=== PATIENT | male | born 1990 | race Caucasian/White ===

== ENCOUNTER 2020-01-01 12:37 | Inpatient (IN) | payer BC, MEDICAID, SELFPAY ==
[2018-10-25 12:47] VITALS: BMI 40.7
[2020-01-01] VITALS (9 sets, daily range): BP systolic 129–144; BP diastolic 90–97; PULSE 106–138; RESP 14–24; TEMP 36.6–38.4; O2SAT 92–99; BMI 38.0; BMI 37.8
--- NOTE | 2020-01-01 | APP_PTH ---
PATIENT: ROCÍO MARROQUIN LOC: PCU U#:[id number] AGE/SX: 29/M ROOM: [facility] RE01/01/[address]: Dr. Melba Still MD : [id number] BED: 1 DIS: 01/06/2020 SPEC #: [id number] RECD: 01/02/20 00:37 STATUS: FLORIAN REQ #: [id number] MAYE: 01/01/20 00:[address]: Melba Still DEPT: SURGICAL PATHOLOGY RECD BY: [place] ENTERED: 01/04/20 10:09 SP TYPE: APPENDIX OTHR DR: Dr. Hosea Kaufman MD Tissues: Appendix, NOS Procedures: Surgery Specimen Level III HEADER OPERATION: Laparoscopic hand-assisted appendectomy PRE-OP DIAGNOSIS: Perforated appendicitis with abscess TISSUE SUBMITTED: Appendix MICROSCOPIC DIAGNOSIS Appendix, appendectomy: Acute ruptured appendicitis and periappendicitis. RANDALL:clay 01/05/20 MICROSCOPIC DESCRIPTION Slides are reviewed. GROSS DESCRIPTION Received is one container labeled with the patient's name and designated appendix. The specimen consists of an appendix measuring 10 cm in length and up to 1.5 cm in diameter. The attached periappendiceal adipose tissue measures up to 2 cm in width. The serosal surface is congested, hemorrhagic and covered focally with currie, purulent exudate. A focal area suspicious for perforation is noted. The lumen is pinpoint. No fecalith is identified. Principal Software Architect sections are submitted in one cassette. / RANDALL:clay 01/04/20 TC:2 CPT: 24184
--- NOTE | 2020-01-01 12:51 | CT_ITS ---
STUDY: CT ABDOMEN AND PELVIS WITHOUT CONTRAST REASON FOR EXAM: Male, 29 years old. right flank pain RADIATION DOSAGE (If Supplied By Facility): CTDIvol = ( 14.78 ) mGy, DLP = ( 835.91 ) mGycm TECHNIQUE: Transaxial images were obtained from the dome of the diaphragm to the symphysis pubis without oral contrast, and without intravenous contrast. Sagittal and coronal images were reconstructed. Individualized dose optimization techniques were used for this CT. COMPARISON: None. FINDINGS: The visualized lung bases are unremarkable. The visualized portions of the heart are within normal limits. Normal liver. Normal gallbladder and extrahepatic biliary system. Normal spleen. Normal pancreas. Normal bilateral adrenal glands. There is a 10 mm stone in the right renal pelvis without hydronephrosis. Normal left kidney. Normal visualized stomach. Normal small intestine. Normal colon. There is a tubular, thick-walled appendix (>7mm), consistent with acute appendicitis. The cecum is displaced superiorly in the right upper quadrant. The appendix is retrocecal near the lower edge of the liver. Normal abdominal aorta. Normal inferior vena cava. Normal retroperitoneum. Normal urinary bladder. Normal abdominal wall. Normal osseous structures. CT/Abdomen/Pelvis without Cont IMPRESSION: There is a tubular, thick-walled appendix (>7mm), consistent with acute appendicitis. The cecum is displaced superiorly in the right upper quadrant. The appendix is retrocecal near the lower edge of the liver. There is a 10 mm stone in the right renal pelvis without hydronephrosis. N.B. : The above information has been verbally conveyed by Anahy Harmon to Nithya Werner MD, on 01/01/2020 13:53:04 (ET). Electronically Signed: Anahy Harmon, at 13:54 EDT Tel , Service support ,
--- NOTE | 2020-01-01 12:51 | ED.DCSUM_ITS ---
History of Present Illness Chief Complaint: Flank Pain Detail of Chief Complaint: Right flank pain Informant: Patient, Family Onset: Days - 4 days Context: Gradual Onset Timing: Waxes and wanes Current Severity: Moderate Maximum Severity: Moderate Narrative: Patient presents with a four-day history of right flank pain. He points to the mid right back and states it wraps around his right side. He denies urinary difficulty. He has had nausea and vomiting. He denies fever or chills. He also complains of decreased hearing out of his right ear that he noted yesterday. - Past Medical History (1) Kidney stones Status: Chronic Past Medical History - Allergies and Home Meds Allergies/Adverse Reactions: Allergies amoxicillin Allergy (Verified 01/01/20 12:39) Rash Primary Care Physician: Hosea aKufman MD [Primary Care Provider] - Prior records reviewed: Yes Lives: With Family Smoking Status: Never smoker Review of Systems General: Denies: Chills, Fever Eyes: Denies: Visual changes - bilaterally ENT: Reports: - - Decreased hearing right ear Cardiovascular: Denies: Chest pain Respiratory: Denies: Dyspnea, Cough Gastrointestinal: Reports: Abdominal pain, Nausea, Vomiting. Denies: Diarrhea Genitourinary: Denies: Dysuria, Hematuria Musculoskeletal: Denies: Extremity Pain Skin: Denies: Rash Neurological: Denies: Headache Hematologic: Denies: Easy bruising, Easy bleeding Allergy: Denies: Uticaria Physical Exam Vital Signs/Narrative: Vital Signs Temp Pulse Resp BP Pulse Ox 01/01/20 12:38 98 F 138 H 20 H 133/96 H 96 Inital Vital Signs reviewed: Yes General: Well nourished, Well developed Head: Normocephalic ENT: Moist mucous membranes, - - Cerumen right ear canal. TM visualized and clear. Neck: Supple Cardiovascular: Regular rhythm, Tachycardia Respiratory: No distress, CTA bilaterally Abdomen: Soft, Nontender, Hypoactive bowel sounds Extremities: Nontender Skin: Normal color Neurological: Alert, Oriented x3 Psychological: Normal affect Diagnostic/Tx/Re-eval Impressions Abdomen/Pelvis CT 01/01/20 12:51 IMPRESSION: There is a tubular, thick-walled appendix (>7mm), consistent with acute appendicitis. The cecum is displaced superiorly in the right upper quadrant. The appendix is retrocecal near the lower edge of the liver. There is a 10 mm stone in the right renal pelvis without hydronephrosis. N.B. : The above information has been verbally conveyed by Anahy Harmon to Nithya Werner MD, on 01/01/2020 13:53:04 (ET). Electronically Signed: Anahy Harmon, at 13:54 EDT Tel , Service support , ADDENDUM: 01/01/20 1401 IMPRESSION: There is a tubular, thick-walled appendix (>7mm), consistent with acute appendicitis. The cecum is displaced superiorly in the right upper quadrant. The appendix is retrocecal near the lower edge of the liver. There is a 10 mm stone in the right renal pelvis without hydronephrosis. N.B. : The above information has been verbally conveyed by Anahy Harmon to Nithya Werner MD, on 01/01/2020 13:53:04 (ET). Electronically Signed: Anahy Harmon, at 13:54 EDT Tel , Service support , 01/01/20 12:51 Abdomen/Pelvis without Cont [CT] Stat 01/01/20 14:38 Abdomen/Pelvis WITH Contrast [CT] Stat Laboratory Results 01/01/20 01/01/20 12:50 12:50 WBC 23.5 H RBC 5.60 Hgb 16.3 Hct 47.8 MCV 85.4 MCH 29.1 MCHC 34.1 RDW Std Deviation 40.4 RDW Coeff of Vicenta 13.1 Plt Count 253 MPV 10.2 Immature Gran % (Auto) 0.600 Neut % (Auto) 89.3 H Lymph % (Auto) 3.6 L [place] % (Auto) 6.4 Eos % (Auto) 0.0 Baso % (Auto) 0.1 Absolute Neuts (auto) 21.0 H Absolute Lymphs (auto) 0.85 Nucleated RBC % 0 Differential Comment SCANNED Sodium 140 Potassium 3.4 L Chloride 105 Carbon Dioxide 27.0 Anion Gap 8 BUN 17 Creatinine 1.22 Estim Creat Clear Calc 84.88 Est GFR (MDRD) Af Amer 89 Est GFR (MDRD) Non-Af 74 BUN/Creatinine Ratio 13.9 Glucose 128 H Calcium 9.4 - Medical Decision Making Patient was initially given morphine, Toradol, Zofran, and IV fluids. Upon completion of lab work and CT he is given a dose of Rocephin and Flagyl as he does have a noted allergy to amoxicillin. Test results are discussed with patient and mother at bedside. I spoke with Dr. Still. Patient's cecum and appendix appear to be in the right upper quadrant just beneath the gallbladder. To better visualize this area prior to going to surgery he will have a repeat CT scan with p.o. and IV contrast. This will be signed out to oncoming physician with follow-up by surgeon. ED Disposition - Plan for ED Patient: Referrals: oHsea Kaufman MD [Primary Care Provider] -
[2020-01-01] MEDS: Ondansetron 4 MG/2 ML Vial IV (13:02)
[2020-01-01] MEDS: Ketorolac 30 MG/ML Syringe IV (13:02)
[2020-01-01] MEDS: Morphine 4 MG/ML Syringe IV (13:02)
[2020-01-01] MEDS: 0.9% Normal Saline 1,000 ML 150 ML IV (13:03)
[2020-01-01 13:11] LABS: Absolute Lymphocyte Count 0.85 X10^3/uL (0.83-4.51); Basophil# 0.02 X10^3/uL; Basophil% 0.1 % (0-1); Hematocrit 47.8 % (40-54); Hemoglobin 16.3 g/dL (13.0-16.5); Lymphocyte # 0.85 X10^3/ul (4.0); Lymphocyte % 3.6 % (19-41); Mean Corp Hgb Conc 34.1 g/dL (32-36); Mean Corpuscular Hgb 29.1 pg (27.0-32.0); Mean Corpuscular Volume 85.4 fL (80-94); Mean Platelet Vol. 10.2 fl (6.2-12.0); Monocyte% 6.4 % (0-10); NRBC Flagged by Analyzer 0 % (0-5); Neutrophil # 21.01 X10^3/uL (2.7-7.7); Neutrophil % 89.3 % (47-70); POSITIVE DIFFERENTIAL YES; Platelet Count 253 K/mm3 (150-450); RBC Distribution Width CV 13.1 % (11.6-14.6); RBC Distribution Width SD 40.4 fl (35.1-43.9); White Blood Count 23.5 K/mm3 (4.4-11.0)
[2020-01-01 13:20] LABS: Anion Gap 8 (5-15); BUN 17 mg/dL (7-18); BUN/Creat Ratio 13.9 RATIO (10-20); Calcium,Total 9.4 mg/dL (8.5-10.1); Chloride 105 mmol/L (98-107); Creatinine, Serum 1.22 mg/dL (0.70-1.30); EST Glomerular Filtration Rate 74 mL/min (>60); Est Glom Filt Rate - Afr Amer 89 mL/min (>60); Estimated Creatinine Clearance 84.88 ml/min; Glucose 128 mg/dL (74-106); Potassium 3.4 mmol/L (3.5-5.1); Sodium Level 140 mmol/L (136-145)
[2020-01-01 13:23] LABS: Differential Indicated SCAN CRITERIA MET
[2020-01-01 13:45] LABS: Differential Comment SCANNED
--- NOTE | 2020-01-01 14:38 | CT_ITS ---
STUDY: CT ABDOMEN AND PELVIS WITH CONTRAST REASON FOR EXAM: Male, 29 years old. Right upper quadrant and flank pain. Question appendicitis. WBC of 23.5 RADIATION DOSAGE (If Supplied By Facility): CTDIvol = ( 15.38 ) mGy, DLP = ( 1454.85 ) mGycm TECHNIQUE: Transaxial images were obtained from the dome of the diaphragm to the symphysis pubis with oral contrast. Oral and amp; IV Gastrografin and amp; 100mL Isovue-300 was administered. Sagittal and coronal images were reconstructed. Individualized dose optimization techniques were used for this CT. COMPARISON: CT of the abdomen and pelvis without contrast, January 01, 2020 (1312 hours). FINDINGS: The visualized lung bases are unremarkable. The visualized portions of the heart are within normal limits. Normal liver. Normal gallbladder and extrahepatic biliary system. Mild splenomegaly without mass. Normal pancreas. Normal bilateral adrenal glands. The right kidney is of normal size and cortical thickness. There is normal contrast enhancement. There is stranding of perinephric fat. There is a 1.1 x 0.8 x 0.7 cm calcification in the renal pelvis without hydronephrosis. Normal visualized right ureter. Normal left kidney. Normal left ureter. Normal visualized stomach. Normal small intestine. There is a wandering cecum which lies along the underside of the liver. There is mild wall thickening. The remainder of the stomach is distended with air via otherwise grossly normal. Appendix is thickened and lies in the hepatorenal fossa. This measures 1.2 cm in diameter. There is diffuse stranding of the appendix. In the right posterior pararenal fascia there is no associated fluid collection measuring 4.2 x 2.3 x 3.5 cm consistent with appendiceal abscess into the fascial plane. This is associated thickening of the right lateral conal fascia. Normal abdominal aorta. Normal inferior vena cava. Normal retroperitoneum. Normal urinary bladder. Prostate. There is no pelvic lymphadenopathy. No free air or free fluid is seen within the peritoneal cavity. Normal abdominal wall. Normal osseous structures. CT/Abdomen/Pelvis WITH Contrast IMPRESSION: 1. No evidence for appendicitis with appendiceal abscess in the adjacent right posterior pararenal fascial plane. This is unchanged from the previous examination of 3 hours earlier. 2. Nonobstructing calculus in the right renal pelvis. 3. Splenomegaly. 4. No other acute abnormality or interval change. N.B. : The above information has been verbally conveyed by Taran Ivan DO to MD Nalini, on 01/01/2020 16:46:20 (ET). Electronically Signed: Taran Ivan DO at 16:47 EDT Tel [phone], Service support ,
[2020-01-01] MEDS: metroNIDAZOLE 500 MG/100 ML BAG 100 MG IV (15:02)
--- NOTE | 2020-01-01 15:24 | PCM.HP.STD ---
History of Present Illness Date of Admission: 01/01/20 The patient is a 29 year old M presented to the ER due to right flank pain/nausea and vomiting. 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 Patient does have a history of kidney stones. Patient reports pain started on Saturday but the nausea and vomiting and started till today also felt warm last night. Patient had a bowel movement this morning. Patient CT abdomen pelvis with no contrast showed inflammation at the area of the cecum acute appendicitis was called the cecum is displaced superiorly just inferior to the liver, 10 mm nonobstructing kidney stone is seen in the right hilum. White blood count was 23. Patient was given Rocephin and Flagyl the ER. Past Medical History Past Medical History (Chronic Problems): Chronic Problems (Last Reviewed 05/26/18 @ 12:09 by Joan Poe) Kidney stones (Chronic) Allergies amoxicillin Allergy (Verified 01/01/20 12:39) Rash Home Medications: Ambulatory Orders Medication Instructions Recorded Fluoxetine HCl 15 mg PO DAILY 05/16/15 Surgical History: - - Kidney stone Lives: With Family Smoking Status: Never smoker - *Family History Maternal History Items: No pertinent history Review of Systems Constitutional: Reports: Anorexia. Denies: Fever HEENT: Denies: Difficulty Swallowing Gastrointestinal: Reports: Abdominal Pain, Nausea, Vomiting VTE Information - Inpt Only VTE Present on Admission: Yes VTE Mechan Device Prophylaxis: SCD's - Physical Exam Vitals/I&O's: Vital Signs Temp Pulse Resp BP Pulse Ox 98 F 138 H 20 H 133/96 H 96 01/01/20 12:38 01/01/20 12:38 01/01/20 12:38 01/01/20 12:38 01/01/20 12:38 Oxygen Delivery Method Room Air Weight: 250 lb Body Mass Index (BMI) 38.0 General: Alert, Oriented x3, Cooperative HEENT: Atraumatic Lungs: Normal air movement Cardiovascular: Tachycardic Abdomen: Soft, Non-Distended, Tender - Right upper flank, no peritoneal signs Extremities: No clubbing, No cyanosis, No edema Neurological: Cranial nerves II-XII grossly intact Psych/Mental Status: Appropriate Laboratory Results 01/01/20 12:50: WBC 23.5 H, RBC 5.60, Hgb 16.3, Hct 47.8, MCV 85.4, MCH 29.1, MCHC 34.1, RDW Std Deviation 40.4, RDW Coeff of Vicenta 13.1, Plt Count 253, MPV 10.2, Immature Gran % (Auto) 0.600, Neut % (Auto) 89.3 H, Lymph % (Auto) 3.6 L, [place] % (Auto) 6.4, Eos % (Auto) 0.0, Baso % (Auto) 0.1, Absolute Neuts (auto) 21.0 H, Absolute Lymphs (auto) 0.85, Nucleated RBC % 0, Differential Comment SCANNED 01/01/20 12:50: Sodium 140, Potassium 3.4 L, Chloride 105, Carbon Dioxide 27.0, Anion Gap 8, BUN 17, Creatinine 1.22, Estim Creat Clear Calc 84.88, Est GFR (MDRD) Af Amer 89, Est GFR (MDRD) Non-Af 74, BUN/Creatinine Ratio 13.9, Glucose 128 H, Calcium 9.4 Current Medications Sodium Chloride () 1,000 mls @ 150 mls/hr IV .[id number] [facility] Last Admin: 01/01/20 13:03 Dose: 150 mls/hr Documented by: Assessment/Plan All Active Problems (Last Reviewed 05/26/18 @ 12:09 by Joan Poe) Impacted cerumen of both ears (Acute) 29-year-old male with right flank abdominal pain --perforated appendicitis with abscess, leukocytosis 1. Patient will get a repeat CT abdomen pelvis with IV and p.o. contrast to give a better look at the area of the cecum since his pain did start on Saturday it is a little atypical for appendicitis. Did discuss with the patient and his mother that the repeat CT abdomen pelvis does show acute appendicitis would plan to to the OR for a laparoscopic appendectomy. Addendum: repeat CT a/p shows appendicitis with abscess in right hepatorenal fossa. Discussed procedure laparoscopic appendectomy, possible open, possible bowel resection along with the risk but not limited to bleeding, infection/abscess, injury to another organ (small bowel, colon, etc.), adhesion, hernia at incision sites, and anesthesia. Patient and his mother had no further questions this time. Melba Still M.D. Pager: [phone] [facility] [address] [place] [address] [address] [place] [address] Office: [phone] Essential Procedure Criteria Procedure Essential: Yes Criteria Note: On 12/01/2019 the [place] Department of Health ([facility]) Public Order signed by [facility] Director Gilda Allen M.D., regarding the Management of Non-Essential Surgeries and Procedures for the purpose of preserving Personal Protective Equipment (PPE) and critical hospital capacity and resources within [place] went into effect as of 12/02/2019 at 5:00PM. According to the [facility] Public Order: This action will remain in full force and effect until the State of Emergency declared by the Governor no longer exists or the Director of the [facility] rescinds or modifies this Order.. This [facility] order stated all non-essential or elective surgeries and procedures that utilize PPE should be delayed unless there is undue risk to the current or future health of a patient. After reviewing the aforementioned [facility] Public Order and the patients clinical case, I have determined that the scheduled procedure meets the criteria to go forward. Risk to Patient if Procedure Delayed: Risk of rapidly worsening to severe symptoms
[2020-01-01] MEDS: Ceftriaxone 1 GM/50 ML BAG IV (16:44)
--- NOTE | 2020-01-01 16:47 | ED.RN ---
DR TY PAGED FOR DR SANDHU
--- NOTE | 2020-01-01 16:48 | ED.DCSUM_ITS ---
- ER Visit Summary Date of Service: 01/01/20 Chief Complaint: [Addendum to initial dictation by Dr. Nithya Bullock] History of Present Illness: The patient is a 29 M [CARE turned over to me awaiting repeat CT scan with contrast of the abdomen and pelvis at the request of surgeon to further evaluate suspicion of appendicitis. Radiologist called with results stating that the patient still had appendicitis and likely is perforated as there is suspicion of an abscess in the perirenal fat on the right.] Physical Examination: [] Test Results: [] Emergency Department Course and Treatment: [] Treatment Plan: [I will discuss resolved findings with surgeon who is going to be made aware of findings. Plan is to take patient to the operating room for surgical intervention] Disposition: [Admit] Impression: [Acute appendicitis-perforated] This note was generated with [employer] dictation software. It may contain incorrect words, spelling, and punctuation that were not noted in review of the chart prior to signing ED Disposition - Plan for ED Patient: Referrals: Hosea Kaufman MD [Primary Care Provider] -
[2020-01-01 17:42] LABS: Mucous, Urine 0 SEEN /hpf (<or=2+)
[2020-01-01 17:46] LABS: Color, Urine Yellow (Yellow); Glucose, Dipstick Normal (Normal); Ketone-Dipstick 5 mg/dl (Negative); Leukocyte Esterase-Dipstick 25 /ul (Negative); Nitrite-Dipstick Positive (Negative); Occult Blood-Urine 250 /ul (Negative); Protein-Dipstick 100 mg/dl (Negative); Urine Bilirubin Dipstick Negative (Negative); Urine Clarity Sl. Cloudy (Clear); Urine Urobilinogen 1 mg/dl (Normal); Urine pH 6.5 (5.0 - 8.0)
[2020-01-01 17:56] LABS: Amorphous Sediment 1+ URATE; Bacteria RARE /hpf (None Seen); Red Blood Cells-Urine 25-50 SEEN /hpf (0-5); Squamous Epithelial Cells - UA 0-5 SEEN /hpf (0-5); White Blood Cells 0-5 SEEN /hpf (0-5)
--- NOTE | 2020-01-01 21:15 | OP.PCM_ITS ---
Report of Operation Date of Procedure: 01/01/20 Pre-Operative Diagnosis: Acute perforated appendicitis with abscess Post-Operative Diagnosis: Same Surgery/Procedure Performed:: Laparoscopic hand-assisted appendectomy tumbling and rolling supervisor: Sol Gill Type of Anesthesia:: General/Supplemental Anesthesiologist: Richar Thibodeaux Special Medications: Rocephin IV and Flagyl IV in the ER. Specimen's removed: Appendix, culture of abscess fluid Estimated Blood Loss (mL): 50 cc Fluids Replaced: 2000 cc Description of Procedure: Indications: 29-year-old male presented to the ER with right flank pain beginning on Saturday-- with nausea and vomiting today. On workup he was found to have acute perforated appendicitis with abscess on CT and a leukocytosis of 23. Patient was started on antibiotics in the ER for acute appendicitis-Rocephin IV and lateral IV. Description of the procedure: The patient was placed on operating table in supine position. General anesthesia was induced. A timeout was completed verifying correct patient, procedure, position and special equipment prior to beginning procedure. Abdomen was prepped and draped in usual sterile fashion. Incision was made in the natural skin line above the umbilicus with a 15 blade scalpel. The fascia was elevated and incised. Entry into the peritoneum was confirmed visually and no bowel was noted in the vicinity of the incision. The [place] trocar was placed under direct vision. Abdomen insufflated with a pressure of 12-15 mmHg. Patient tolerated insertion well. The scope was inserted and the abdomen inspected. No injuries from initial trocar placement were noted. The cecum was in the right upper quadrant just below the liver and the appendix was retrocecal. Additional 5 mm ports were placed in the epigastric and right lateral abdomen under direct visualization.. Abscess cavity was entered and suctioned and purulent fluid was sent for culture. Due to the dense adhesions along with the gas-filled colon/retrocecal appendix unable to see well laparoscopically did then place a hand-assisted port in the supraumbilical incision for better visualization. The table was placed head up with the right side elevated. Using the hand assist port and appendix was able to be dissected free, which was noted to be very inflamed. The mesoappendix was divided using the Enseal. The epigastric port was exchanged for a 12 mm trocar to accommodate a 45 mm linear cutting stapler blue load. Stapler was used to divide and staple the base of the appendix. Appendix was removed through the gel hand-assisted port. Appendix was sent to pathology. The appendiceal stump was then irrigated and hemostasis was assured. Fluid was suctioned no other pathology was identified. Secondary trochars were removed under direct visualization. No bleeding was noted trocar sites. The laparoscope withdrawn and the umbilical trocar removed. The abdomen was allowed to collapse using the smoke evacuator. Local anesthesia of 30 mL of 0.5% Marcaine was used at the incision sites. The supraumbilical midline incision was closed with the 1-0 PDS suture. The epigastric 12 mm trocar site was closed with interrupted suture of 0 Vicryl. The skin was closed with interrupted sutures of 4-0 Monocryl and Steri-Strips. The patient was extubated. The patient tolerated the procedure well and was taken to the postanesthesia care unit in satisfactory condition. - Complications none
[2020-01-01] MEDS: Bupiv/Epi 0.5% Mpf 30 ML Vial (21:30)
[2020-01-02] VITALS (9 sets, daily range): BP systolic 122–141; BP diastolic 77–94; PULSE 117–125; RESP 18–20; TEMP 36.4–37.2; O2SAT 92–95
[2020-01-02] MEDS: Lactated Ringers 1,000 ML 125 ML IV (00:17)
[2020-01-02] MEDS: Ciprofloxacin 400 MG/200 ML BAG 200 MG IV ×3 (00:19→22:47)
[2020-01-02] MEDS: Morphine 2 MG/ML Syringe IV (00:50)
[2020-01-02] MEDS: metroNIDAZOLE 500 MG/100 ML BAG 100 MG IV ×4 (01:41→21:11)
[2020-01-02] MEDS: Morphine 4 MG/ML Syringe IV ×4 (02:52→14:14)
[2020-01-02] MEDS: Ondansetron 4 MG/2 ML Vial IV (06:11)
[2020-01-02 07:03] LABS: Absolute Lymphocyte Count 0.71 X10^3/uL (0.83-4.51); Absolute Neutrophil Count 16.8 X10^3/uL (2.0-7.7); Basophil# 0.02 X10^3/uL; Basophil% 0.1 % (0-1); Hematocrit 41.9 % (40-54); Hemoglobin 13.7 g/dL (13.0-16.5); Lymphocyte # 0.71 X10^3/ul (4.0); Lymphocyte % 3.8 % (19-41); Mean Corp Hgb Conc 32.7 g/dL (32-36); Mean Corpuscular Hgb 28.9 pg (27.0-32.0); Mean Corpuscular Volume 88.4 fL (80-94); Mean Platelet Vol. 10.5 fl (6.2-12.0); Monocyte# 0.91 X10^3/uL; Monocyte% 4.9 % (0-10); NRBC Flagged by Analyzer 0 % (0-5); Neutrophil # 16.81 X10^3/uL (2.7-7.7); Neutrophil % 90.7 % (47-70); Platelet Count 224 K/mm3 (150-450); RBC Distribution Width CV 13.3 % (11.6-14.6); RBC Distribution Width SD 43.5 fl (35.1-43.9); Red Blood Count 4.74 M/mm3 (4.6-6.2); White Blood Count 18.6 K/mm3 (4.4-11.0)
[2020-01-02] MEDS: 0.9% Saline Lock 10 ML Syringe IV ×3 (08:03→14:14)
--- NOTE | 2020-01-02 08:39 | PN.SURG_ITS ---
Subjective: Patient denies flatus, admits to bloating, hiccups/burping, did have some nausea and vomiting x1 this morning, white blood count is down to 18 from 23 on Cipro Flagyl IV - Physical Exam Vitals/I&O's: Vital Signs Temp Pulse Resp BP Pulse Ox 98.1 F 118 H 18 123/79 H 94 01/02/20 06:21 01/02/20 06:21 01/02/20 06:21 01/02/20 06:21 01/02/20 06:21 Oxygen Flow Rate (L/min) 2 Oxygen Delivery Method Room Air Weight: 248 lb 7.375 oz Body Mass Index (BMI) 37.8 Intake and Output for Last 24 Hours 12/31/19 01/01/20 01/02/20 23:59 23:59 23:59 Intake Total 1150 / 1250 1375 / 1375 Output Total 200 / 200 Balance 1150 / 1250 1175 / 1175 General: Alert, Oriented x3, Cooperative, No apparent distress Lungs: Normal air movement Cardiovascular: Regular rate Abdomen: Soft, Distended - Mild, Tender - Near incisions clean dry and intact, no peritoneal signs Extremities: No clubbing, No cyanosis, No edema Neurological: Cranial nerves II-XII grossly intact Psych/Mental Status: Appropriate Laboratory Results 01/01/20 12:50: WBC 23.5 H, RBC 5.60, Hgb 16.3, Hct 47.8, MCV 85.4, MCH 29.1, MCHC 34.1, RDW Std Deviation 40.4, RDW Coeff of Vicenta 13.1, Plt Count 253, MPV 10.2, Immature Gran % (Auto) 0.600, Neut % (Auto) 89.3 H, Lymph % (Auto) 3.6 L, [place] % (Auto) 6.4, Eos % (Auto) 0.0, Baso % (Auto) 0.1, Absolute Neuts (auto) 21.0 H, Absolute Lymphs (auto) 0.85, Nucleated RBC % 0, Differential Comment SCANNED 01/01/20 12:50: Sodium 140, Potassium 3.4 L, Chloride 105, Carbon Dioxide 27.0, Anion Gap 8, BUN 17, Creatinine 1.22, Estim Creat Clear Calc 84.88, Est GFR (MDRD) Af Amer 89, Est GFR (MDRD) Non-Af 74, BUN/Creatinine Ratio 13.9, Glucose 128 H, Calcium 9.4 01/01/20 17:20: Urine Color Yellow, Urine Clarity Sl. Cloudy, Urine pH 6.5, Ur Specific [employer] 1.010, Urine Protein 100 H, Urine Glucose (UA) Normal, Urine Ketones 5 H, Urine Occult Blood 250 H, Urine Nitrite Positive H, Urine Bilirubin Negative, Urine Urobilinogen 1 H, Ur Leukocyte Esterase 25 H, Urine RBC 25-50 SEEN, Urine WBC 0-5 SEEN, Ur Squamous Epith Cells 0-5 SEEN, Amorphous Sediment 1+ URATE, Urine Bacteria RARE, Urine Mucus 0 SEEN 01/02/20 05:56: WBC 18.6 H, RBC 4.74, Hgb 13.7, Hct 41.9, MCV 88.4, MCH 28.9, MCHC 32.7, RDW Std Deviation 43.5, RDW Coeff of Vicenta 13.3, Plt Count 224, MPV 10.5, Immature Gran % (Auto) 0.500, Neut % (Auto) 90.7 H, Lymph % (Auto) 3.8 L, [place] % (Auto) 4.9, Eos % (Auto) 0.0, Baso % (Auto) 0.1, Absolute Neuts (auto) 16.8 H, Absolute Lymphs (auto) 0.71 L, Nucleated RBC % 0 Current Medications Hydrocodone Bitart/Acetaminophen (Lortab [Replacement] 7.5-325/15) 15 ml PO Q4H PRN PRN PRN Reason: Pain Score 1-10/10 Lactated Ringer's () 1,000 mls @ 125 mls/hr IV .Q8H [facility] Last Admin: 01/02/20 08:02 Dose: Not Given Documented by: Ciprofloxacin (Cipro) 400 mg in 200 mls @ 200 mls/hr IV Q12 [facility] Last Infusion: 01/02/20 01:30 Dose: Infused Documented by: Metronidazole (Flagyl) 500 mg in 100 mls @ 100 mls/hr IV Q8 [facility] Last Infusion: 01/02/20 07:54 Dose: Infused Documented by: Morphine Sulfate () 2 - 4 mg IV Q2H PRN PRN PRN Reason: Pain Score 1-10/10 Last Admin: 01/02/20 00:50 Dose: 2 mg Documented by: Morphine Sulfate () 2 - 4 mg IV Q2H PRN PRN PRN Reason: Pain Score 1-10/10 Last Admin: 01/02/20 06:12 Dose: 4 mg Documented by: Ondansetron HCl (Zofran) 4 mg IV Q8H PRN PRN PRN Reason: NAUSEA Last Admin: 01/02/20 06:11 Dose: 4 mg Documented by: Medical Necessity - Tobacco Use Smoking Status: Never smoker Assessment/Plan All Active Problems (Last Reviewed 05/26/18 @ 12:09 by Joan Poe) Impacted cerumen of both ears (Acute) 29-year-old male with fragile X syndrome, perforated appendicitis with abscess status post laparoscopic appendectomy postop day 1 1. Patient is having some nausea and did vomit x1 denies any flatus will change to sips and chips until bowel function improves due to perforated appendicitis would be at high risk for postop ileus. 2. Encourage ambulation incentive spirometer and up into the chair. 3. We will continue IV Cipro Flagyl blood count is down to 18 from 23. Melba Still M.D. Pager: [phone] [facility] [address] [place] [address], [address] [place] [address] Office: [phone]
--- NOTE | 2020-01-02 10:25 | CASEMGMT ---
RN OSCAR Face to Face with patient for initial transition planning/care coordination assessment. RN CM introduced self and role at [facility]. Patient sitting in chair, alert and oriented, father at bedside. Patient willing to participate in assessment and is able to answer all questions appropriately. Care providers, pharmacy, and demographics verified. Patient wishes to discharge home, denies need for home health at this time. Patient states he has no further needs or concerns at this time. CM to follow for discharge planning needs that may arise. PCP: Hosea Kaufman Specialists: [facility] Pharmacy: [facility] Insurance: [facility] Community plan Prescription Benefit: yes Living Will/HPOA: none LNOK: parents Living Arrangements: Patient lives with parents in 2 story home, patient is independent and able to navigate stairs. Transportation: Father DME/HHC: Patient denies DME and previous HHC Disposition Plan: Patient to discharge home with family support and follow-up plans in place. Maureen NOVA, RN, CM
--- NOTE | 2020-01-02 12:38 | NURSING ---
very faint few bowel sounds.
[2020-01-02] MEDS: 0.9% Normal Saline 1,000 ML 125 ML IV (14:03)
[2020-01-03] MEDS: 0.9% Saline Lock 10 ML Syringe IV ×5 (00:05→22:57)
[2020-01-03] MEDS: Morphine 2 MG/ML Syringe IV ×3 (00:06→22:57)
[2020-01-03] MEDS: 0.9% Normal Saline 1,000 ML 125 ML IV ×2 (00:09→09:17)
[2020-01-03 03:15] VITALS: BP 131/79; PULSE 115; RESP 18; TEMP 37.1; O2SAT 93
[2020-01-03] MEDS: metroNIDAZOLE 500 MG/100 ML BAG 100 MG IV ×3 (05:56→21:12)
[2020-01-03 07:06] LABS: Absolute Lymphocyte Count 1.02 X10^3/uL (0.83-4.51); Basophil# 0.02 X10^3/uL; Basophil% 0.1 % (0-1); Differential Indicated SCAN CRITERIA MET; Hematocrit 38.2 % (40-54); Hemoglobin 12.2 g/dL (13.0-16.5); Lymphocyte # 1.02 X10^3/ul (4.0); Lymphocyte % 6.4 % (19-41); Mean Corp Hgb Conc 31.9 g/dL (32-36); Mean Corpuscular Hgb 28.8 pg (27.0-32.0); Mean Corpuscular Volume 90.1 fL (80-94); Mean Platelet Vol. 10.5 fl (6.2-12.0); Monocyte# 0.77 X10^3/uL; Monocyte% 4.8 % (0-10); NRBC Flagged by Analyzer 0 % (0-5); Neutrophil # 14.04 X10^3/uL (2.7-7.7); Neutrophil % 88.1 % (47-70); POSITIVE MORPHOLOGY YES; Platelet Count 221 K/mm3 (150-450); RBC Distribution Width CV 13.5 % (11.6-14.6); RBC Distribution Width SD 44.8 fl (35.1-43.9); Red Blood Count 4.24 M/mm3 (4.6-6.2)
[2020-01-03 07:20] LABS: Differential Comment SCANNED
[2020-01-03 07:35] LABS: Anion Gap 6 (5-15); BUN 15 mg/dL (7-18); BUN/Creat Ratio 15.7 RATIO (10-20); Calcium,Total 8.1 mg/dL (8.5-10.1); Chloride 107 mmol/L (98-107); Creatinine, Serum 0.96 mg/dL (0.70-1.30); EST Glomerular Filtration Rate 97 mL/min (>60); Est Glom Filt Rate - Afr Amer 118 mL/min (>60); Estimated Creatinine Clearance 107.86 ml/min; Glucose 99 mg/dL (74-106); Potassium 3.6 mmol/L (3.5-5.1); Sodium Level 140 mmol/L (136-145)
[2020-01-03 07:44] VITALS: PULSE 112
[2020-01-03] MEDS: Ondansetron 4 MG/2 ML Vial IV (07:58)
[2020-01-03] MEDS: Morphine 4 MG/ML Syringe IV (09:17)
[2020-01-03] MEDS: Ciprofloxacin 400 MG/200 ML BAG 200 MG IV ×2 (09:19→22:52)
--- NOTE | 2020-01-03 10:02 | PCM.PN.SRG ---
Subjective: Patient has only had minimal flatus still having issues with hiccups some nausea no vomiting today. Per patient's father he has ambulated some in the stone. White blood count is down from 18->16 he is on Cipro Flagyl IV. - Physical Exam Vitals/I&O's: Vital Signs Temp Pulse Resp BP Pulse Ox 98.7 F 112 H 18 131/79 H 93 01/03/20 03:15 01/03/20 07:44 01/03/20 03:15 01/03/20 03:15 01/03/20 03:15 Oxygen Flow Rate (L/min) 2 Oxygen Delivery Method Room Air Weight: 248 lb 7.375 oz Body Mass Index (BMI) 37.8 Intake and Output for Last 24 Hours 01/01/20 01/02/20 01/03/20 23:59 23:59 23:59 Intake Total 1150 / 1250 3206.25 / 3206.25 1145.83 / 1145.83 Output Total 200 / 200 Balance 1150 / 1250 3006.25 / 3006.25 1145.83 / 1145.83 General: Alert, Cooperative, No apparent distress Lungs: Normal air movement Cardiovascular: Regular rate Abdomen: Soft, Distended - Mild to moderate, Tender - Near incisions appropriate clean dry and intact with op sites, no peritoneal signs Extremities: No clubbing, No cyanosis, No edema Neurological: Cranial nerves II-XII grossly intact Psych/Mental Status: Appropriate Microbiology Past 72 Hours 01/01/20 17:20 Urine, Clean Catch Urine Culture - Final Mixed Culture 01/01/20 Unknown Abs - Abdominal Gram Stain - Final 01/01/20 Unknown Abs - Abdominal Wound Culture - Preliminary GNR lactose [employer] infrastructure consultant Laboratory Results 01/03/20 06:07: WBC 16.0 H, RBC 4.24 L, Hgb 12.2 L, Hct 38.2 L, MCV 90.1, MCH 28.8, MCHC 31.9 L, RDW Std Deviation 44.8 H, RDW Coeff of Vicenta 13.5, Plt Count 221, MPV 10.5, Immature Gran % (Auto) 0.600, Neut % (Auto) 88.1 H, Lymph % (Auto) 6.4 L, [place] % (Auto) 4.8, Eos % (Auto) 0.0, Baso % (Auto) 0.1, Absolute Neuts (auto) 14.0 H, Absolute Lymphs (auto) 1.02, Nucleated RBC % 0, Differential Comment SCANNED 01/03/20 06:07: Sodium 140, Potassium 3.6, Chloride 107, Carbon Dioxide 27.0, Anion Gap 6, BUN 15, Creatinine 0.96, Estim Creat Clear Calc 107.86, Est GFR (MDRD) Af Amer 118, Est GFR (MDRD) Non-Af 97, BUN/Creatinine Ratio 15.7, Glucose 99, Calcium 8.1 L Current Medications Hydrocodone Bitart/Acetaminophen (Lortab [Replacement] 7.5-325/15) 15 ml PO Q4H PRN PRN PRN Reason: Pain Score 1-10/10 Ciprofloxacin (Cipro) 400 mg in 200 mls @ 200 mls/hr IV Q12 [facility] Last Admin: 01/03/20 09:19 Dose: 200 mls/hr Documented by: Metronidazole (Flagyl) 500 mg in 100 mls @ 100 mls/hr IV Q8 [facility] Last Infusion: 01/03/20 06:56 Dose: Infused Documented by: Sodium Chloride () 250 mls @ 15 mls/hr IV .[id number] PRN PRN Reason: Saline Flush Sodium Chloride () 250 mls @ 15 mls/hr IV .[id number] PRN PRN Reason: Additional IVPB Infusion Sodium Chloride () 1,000 mls @ 125 mls/hr IV .Q8H [facility] Last Admin: 01/03/20 09:17 Dose: 125 mls/hr Documented by: Morphine Sulfate () 2 - 4 mg IV Q2H PRN PRN PRN Reason: Pain Score 1-10/10 Last Admin: 01/03/20 03:23 Dose: 2 mg Documented by: Morphine Sulfate () 2 - 4 mg IV Q2H PRN PRN PRN Reason: Pain Score 1-10/10 Last Admin: 01/03/20 09:17 Dose: 4 mg Documented by: Ondansetron HCl (Zofran) 4 mg IV Q8H PRN PRN PRN Reason: NAUSEA Last Admin: 01/03/20 07:58 Dose: 4 mg Documented by: Sodium Chloride () 10 - 40 ml IV UD PRN PRN Reason: SALINE FLUSH Last Admin: 01/03/20 09:18 Dose: 10 ml Documented by: Medical Necessity - Tobacco Use Smoking Status: Never smoker Assessment/Plan All Active Problems (Last Reviewed 05/26/18 @ 12:09 by Joan Poe) Impacted cerumen of both ears (Acute) 29-year-old male with fragile X syndrome, perforated appendicitis with abscess status post laparoscopic hand-assisted appendectomy postop day 2 1. Postop ileus?we will await increased bowel function continue sips. 2. Encourage ambulation incentive spirometer and up into the chair. 3. We will continue IV Cipro Flagyl blood count is down to 16 from 18. Melba Still M.D. Pager: [phone] [facility] [address] [place] [address], [address] [place] [id number] Office: [phone]
[2020-01-03 12:13] VITALS: BP 145/91; PULSE 112; RESP 18; TEMP 36.7; O2SAT 94
[2020-01-03 16:08] VITALS: BP 140/98; PULSE 111; RESP 18; TEMP 37.4; O2SAT 90
--- NOTE | 2020-01-03 17:26 | NURSING ---
iv flds dcreased to 90 at 0930
[2020-01-03 18:03] VITALS: BP 147/85; PULSE 115; RESP 18; TEMP 37; O2SAT 92
[2020-01-03] MEDS: 0.9% Normal Saline 1,000 ML 90 ML IV (19:56)
[2020-01-03 21:09] VITALS: BP 140/87; PULSE 107; RESP 18; TEMP 36.6; O2SAT 95
[2020-01-04 03:18] VITALS: BP 139/89; PULSE 100; RESP 18; TEMP 36.7; O2SAT 93
[2020-01-04] MEDS: metroNIDAZOLE 500 MG/100 ML BAG 100 MG IV ×3 (06:16→22:39)
[2020-01-04 06:40] LABS: Absolute Lymphocyte Count 0.98 X10^3/uL (0.83-4.51); Absolute Neutrophil Count 12.7 X10^3/uL (2.0-7.7); Basophil# 0.02 X10^3/uL; Basophil% 0.1 % (0-1); Eosinophil# 0.01 X10^3/uL; Eosinophils% 0.1 % (0-5); Hematocrit 37.1 % (40-54); Hemoglobin 11.8 g/dL (13.0-16.5); Lymphocyte # 0.98 X10^3/ul (4.0); Lymphocyte % 6.8 % (19-41); Mean Corp Hgb Conc 31.8 g/dL (32-36); Mean Corpuscular Hgb 28.6 pg (27.0-32.0); Mean Corpuscular Volume 89.8 fL (80-94); Mean Platelet Vol. 10.6 fl (6.2-12.0); Monocyte# 0.72 X10^3/uL; NRBC Flagged by Analyzer 0 % (0-5); Neutrophil # 12.66 X10^3/uL (2.7-7.7); Neutrophil % 87.5 % (47-70); Platelet Count 226 K/mm3 (150-450); RBC Distribution Width CV 13.6 % (11.6-14.6); RBC Distribution Width SD 44.8 fl (35.1-43.9); Red Blood Count 4.13 M/mm3 (4.6-6.2); White Blood Count 14.5 K/mm3 (4.4-11.0)
[2020-01-04 07:14] LABS: Anion Gap 9 (5-15); BUN 17 mg/dL (7-18); Calcium,Total 8.4 mg/dL (8.5-10.1); Chloride 112 mmol/L (98-107); Creatinine, Serum 0.77 mg/dL (0.70-1.30); EST Glomerular Filtration Rate 124 mL/min (>60); Est Glom Filt Rate - Afr Amer 151 mL/min (>60); Estimated Creatinine Clearance 134.48 ml/min; Glucose 98 mg/dL (74-106); Potassium 3.5 mmol/L (3.5-5.1); Sodium Level 144 mmol/L (136-145)
--- NOTE | 2020-01-04 08:13 | PN.SURG_ITS ---
Subjective: Patient still having hiccups, denies much flatus, did have a small bowel movement but is still not to hungry, white blood cell count improving on IV Cipro Flagyl - Physical Exam Vitals/I&O's: Vital Signs Temp Pulse Resp BP Pulse Ox 98.1 F 100 18 139/89 H 93 01/04/20 03:18 01/04/20 03:18 01/04/20 03:18 01/04/20 03:18 01/04/20 03:18 Oxygen Flow Rate (L/min) 2 Oxygen Delivery Method Room Air Weight: 248 lb 7.375 oz Body Mass Index (BMI) 37.8 Intake and Output for Last 24 Hours 01/02/20 01/03/20 01/04/20 23:59 23:59 23:59 Intake Total 3206.25 / 3206.25 2872.50 / 2872.50 676 / 676 Output Total 200 / 200 Balance 3006.25 / 3006.25 2872.50 / 2872.50 676 / 676 General: Alert, Cooperative, No apparent distress Lungs: Normal air movement Cardiovascular: Regular rate Abdomen: Soft, Distended - Mild to moderate, Tender - Near incisions clean dry and intact with Steri's and OpSite's, no peritoneal signs Psych/Mental Status: Appropriate Microbiology Past 72 Hours 01/01/20 Unknown Abs - Abdominal Gram Stain - Final 01/01/20 Unknown Abs - Abdominal Wound Culture - Preliminary Escherichia coli 01/01/20 17:20 Urine, Clean Catch Urine Culture - Final Mixed Culture Laboratory Results 01/04/20 06:16: WBC 14.5 H, RBC 4.13 L, Hgb 11.8 L, Hct 37.1 L, MCV 89.8, MCH 28.6, MCHC 31.8 L, RDW Std Deviation 44.8 H, RDW Coeff of Vicenta 13.6, Plt Count 226, MPV 10.6, Immature Gran % (Auto) 0.500, Neut % (Auto) 87.5 H, Lymph % (Auto) 6.8 L, [place] % (Auto) 5.0, Eos % (Auto) 0.1, Baso % (Auto) 0.1, Absolute Neuts (auto) 12.7 H, Absolute Lymphs (auto) 0.98, Nucleated RBC % 0 01/04/20 06:16: Sodium 144, Potassium 3.5, Chloride 112 H, Carbon Dioxide 23.0, Anion Gap 9, BUN 17, Creatinine 0.77, Estim Creat Clear Calc 134.48, Est GFR (MDRD) Af Amer 151, Est GFR (MDRD) Non-Af 124, BUN/Creatinine Ratio 22.0 H, Glucose 98, Calcium 8.4 L Current Medications Hydrocodone Bitart/Acetaminophen (Lortab [Replacement] 7.5-325/15) 15 ml PO Q4H PRN PRN PRN Reason: Pain Score 1-10/10 Ciprofloxacin (Cipro) 400 mg in 200 mls @ 200 mls/hr IV Q12 [facility] Last Infusion: 01/03/20 23:52 Dose: Infused Documented by: Metronidazole (Flagyl) 500 mg in 100 mls @ 100 mls/hr IV Q8 [facility] Last Infusion: 01/04/20 07:16 Dose: Infused Documented by: Sodium Chloride () 250 mls @ 15 mls/hr IV .[id number] PRN PRN Reason: Saline Flush Sodium Chloride () 250 mls @ 15 mls/hr IV .[id number] PRN PRN Reason: Additional IVPB Infusion Sodium Chloride () 1,000 mls @ 75 mls/hr IV .[id number] [facility] Last Infusion: 01/04/20 07:16 Dose: 90 mls/hr Documented by: Morphine Sulfate () 2 - 4 mg IV Q2H PRN PRN PRN Reason: Pain Score 1-10/10 Last Admin: 01/03/20 22:57 Dose: 2 mg Documented by: Morphine Sulfate () 2 - 4 mg IV Q2H PRN PRN PRN Reason: Pain Score 1-10/10 Last Admin: 01/03/20 09:17 Dose: 4 mg Documented by: Ondansetron HCl (Zofran) 4 mg IV Q8H PRN PRN PRN Reason: NAUSEA Last Admin: 01/03/20 07:58 Dose: 4 mg Documented by: Sodium Chloride () 10 - 40 ml IV UD PRN PRN Reason: SALINE FLUSH Last Admin: 01/03/20 22:57 Dose: 10 ml Documented by: Medical Necessity - Tobacco Use Smoking Status: Never smoker Assessment/Plan All Active Problems (Last Reviewed 05/26/18 @ 12:09 by Joan Poe) Impacted cerumen of both ears (Acute) 29-year-old male with fragile X syndrome, perforated appendicitis with abscess status post laparoscopic hand-assisted appendectomy postop day 3 1. Postop ileus?we will await increased bowel function continue sips. Will check KUB today 2. Encourage ambulation incentive spirometer and up into the chair. 3. We will continue IV Cipro Flagyl blood count is down to 14.5 from 16. Melba Still M.D. Pager: [phone] [facility] [address] [place] [address], [address] [place] [address] Office: [phone]
--- NOTE | 2020-01-04 09:15 | RAD_ITS ---
STUDY: X-RAY - ABDOMEN/PELVIS REASON FOR EXAM: Male, 29 years old. S/p appy-perforated w abscess, post op ileus TECHNIQUE: Single AP view of the abdomen / pelvis. COMPARISON: None. FINDINGS: Mildly dilated central small bowel loops. Small amount of gas is seen within the colon as well as oral contrast in the distal rectum. This may represent either an ileus pattern versus incomplete small bowel obstruction. Follow-up is recommended. The visualized liver, spleen and kidneys are grossly normal in size and morphology. Normal soft tissue structures. Normal visualized osseous structures. RAD/Abdomen Single View (Portable) IMPRESSION: Mildly dilated small bowel loops with a small amounts of gas in the colon as well as oral contrast in the distal rectum. This may represent an ileus pattern or incomplete small bowel obstruction. Follow-up is recommended. Electronically Signed: Markus Flores, at 9:44 EDT , Service support ,
[2020-01-04 09:36] VITALS: BP 130/90; PULSE 99; RESP 18; TEMP 36.6; O2SAT 96
[2020-01-04] MEDS: Ciprofloxacin 400 MG/200 ML BAG 200 MG IV ×2 (09:40→21:29)
[2020-01-04] MEDS: 0.9% Normal Saline 1,000 ML 75 ML IV (09:41)
[2020-01-04 15:03] VITALS: BP 132/87; PULSE 95; RESP 16; TEMP 36.6; O2SAT 93
--- NOTE | 2020-01-04 16:22 | NURSING ---
this RN taking over care at this time
[2020-01-04 21:32] VITALS: BP 135/83; PULSE 92; RESP 16; TEMP 37.1; O2SAT 96
[2020-01-04] MEDS: Lactated Ringers 1,000 ML 75 ML IV (23:49)
[2020-01-05 02:39] VITALS: BP 140/86; PULSE 88; RESP 18; TEMP 36.1; O2SAT 94
[2020-01-05] MEDS: 0.9% Saline Lock 10 ML Syringe IV (02:47)
[2020-01-05] MEDS: Ondansetron 4 MG/2 ML Vial IV (02:47)
[2020-01-05] MEDS: metroNIDAZOLE 500 MG/100 ML BAG 100 MG IV ×3 (05:47→21:51)
[2020-01-05 06:23] LABS: Absolute Lymphocyte Count 1.23 X10^3/uL (0.83-4.51); Absolute Neutrophil Count 7.8 X10^3/uL (2.0-7.7); Basophil# 0.02 X10^3/uL; Basophil% 0.2 % (0-1); Eosinophil# 0.04 X10^3/uL; Eosinophils% 0.4 % (0-5); Hematocrit 35.8 % (40-54); Hemoglobin 11.7 g/dL (13.0-16.5); Lymphocyte # 1.23 X10^3/ul (4.0); Lymphocyte % 12.7 % (19-41); Mean Corp Hgb Conc 32.7 g/dL (32-36); Mean Corpuscular Hgb 29.1 pg (27.0-32.0); Mean Corpuscular Volume 89.1 fL (80-94); Mean Platelet Vol. 10.2 fl (6.2-12.0); Monocyte# 0.55 X10^3/uL; Monocyte% 5.7 % (0-10); NRBC Flagged by Analyzer 0 % (0-5); Neutrophil # 7.76 X10^3/uL (2.7-7.7); Neutrophil % 80.3 % (47-70); Platelet Count 235 K/mm3 (150-450); RBC Distribution Width CV 13.3 % (11.6-14.6); RBC Distribution Width SD 43.8 fl (35.1-43.9); Red Blood Count 4.02 M/mm3 (4.6-6.2); White Blood Count 9.7 K/mm3 (4.4-11.0)
[2020-01-05 08:35] VITALS: BP 133/79; PULSE 82; RESP 18; TEMP 36.6; O2SAT 98
--- NOTE | 2020-01-05 09:03 | PCM.PN.SRG ---
Subjective: Patient denies abdominal pain, hiccups have improved, patient admits to passing a bit of flatus. - Physical Exam Vitals/I&O's: Vital Signs Temp Pulse Resp BP Pulse Ox 97 F L 88 18 140/86 H 94 01/05/20 02:39 01/05/20 02:39 01/05/20 02:39 01/05/20 02:39 01/05/20 02:39 Oxygen Flow Rate (L/min) 2 Oxygen Delivery Method Room Air Weight: 248 lb 7.375 oz Body Mass Index (BMI) 37.8 Intake and Output for Last 24 Hours 01/03/20 01/04/20 01/05/20 23:59 23:59 23:59 Intake Total 2872.50 / 2872.50 2309.75 / 2309.75 548.75 / 548.75 Balance 2872.50 / 2872.50 2309.75 / 2309.75 548.75 / 548.75 General: Alert, Oriented x3, Cooperative, No apparent distress Lungs: Normal air movement Cardiovascular: Regular rate Abdomen: Soft, Non Tender, Tender - minimal ttp near incisions, c/d/i, no PS Extremities: No clubbing, No cyanosis, No edema Microbiology Past 72 Hours 01/01/20 Unknown Abs - Abdominal Gram Stain - Final 01/01/20 Unknown Abs - Abdominal Wound Culture - Preliminary Escherichia coli Gram negative tonny 01/01/20 Unknown Abs - Abdominal Anaerobic Culture - Preliminary Checking for anaerobes, further studies to follow. 01/01/20 17:20 Urine, Clean Catch Urine Culture - Final Mixed Culture Laboratory Results 01/05/20 05:50: WBC 9.7, RBC 4.02 L, Hgb 11.7 L, Hct 35.8 L, MCV 89.1, MCH 29.1, MCHC 32.7, RDW Std Deviation 43.8, RDW Coeff of [place] 13.3, Plt Count 235, MPV 10.2, Immature Gran % (Auto) 0.700, Neut % (Auto) 80.3 H, Lymph % (Auto) 12.7 L, [place] % (Auto) 5.7, Eos % (Auto) 0.4, Baso % (Auto) 0.2, Absolute Neuts (auto) 7.8 H, Absolute Lymphs (auto) 1.23, Nucleated RBC % 0 Current Medications Hydrocodone Bitart/Acetaminophen (Lortab [Replacement] 7.5-325/15) 15 ml PO Q4H PRN PRN PRN Reason: Pain Score 1-10/10 Ciprofloxacin (Cipro) 400 mg in 200 mls @ 200 mls/hr IV Q12 [facility] Last Infusion: 01/04/20 22:29 Dose: Infused Documented by: Metronidazole (Flagyl) 500 mg in 100 mls @ 100 mls/hr IV Q8 [facility] Last Admin: 01/05/20 05:47 Dose: 100 mls/hr Documented by: Sodium Chloride () 250 mls @ 15 mls/hr IV .[id number] PRN PRN Reason: Saline Flush Last Infusion: 01/05/20 05:48 Dose: 0 mls/hr Documented by: Sodium Chloride () 250 mls @ 15 mls/hr IV .[id number] PRN PRN Reason: Additional IVPB Infusion Lactated Ringer's () 1,000 mls @ 75 mls/hr IV .[id number] [facility] Last Infusion: 01/05/20 05:48 Dose: 0 mls/hr Documented by: Morphine Sulfate () 2 - 4 mg IV Q2H PRN PRN PRN Reason: Pain Score 1-10/10 Last Admin: 01/03/20 22:57 Dose: 2 mg Documented by: Morphine Sulfate () 2 - 4 mg IV Q2H PRN PRN PRN Reason: Pain Score 1-10/10 Last Admin: 01/03/20 09:17 Dose: 4 mg Documented by: Ondansetron HCl (Zofran) 4 mg IV Q8H PRN PRN PRN Reason: NAUSEA Last Admin: 01/05/20 02:47 Dose: 4 mg Documented by: Sodium Chloride () 10 - 40 ml IV UD PRN PRN Reason: SALINE FLUSH Last Admin: 01/05/20 02:47 Dose: 10 ml Documented by: Medical Necessity - Tobacco Use Smoking Status: Never smoker Assessment/Plan All Active Problems (Last Reviewed 05/26/18 @ 12:09 by Joan Poe) Impacted cerumen of both ears (Acute) 29-year-old male with fragile X syndrome, perforated appendicitis with abscess status post laparoscopic hand-assisted appendectomy postop day 4 1. pt had flatus will continue to go slow with clears 2. Encourage ambulation incentive spirometer and up into the chair. 3. We will continue IV Cipro Flagyl blood count is within normal limits Melba Still M.D. Pager: [phone] [facility] [address] [place] [address], [address] [place] [id number] Office: [phone]
[2020-01-05] MEDS: Ciprofloxacin 400 MG/200 ML BAG 200 MG IV ×2 (09:32→23:07)
[2020-01-05] MEDS: Lactated Ringers 1,000 ML 75 ML IV (16:05)
[2020-01-05] MEDS: FLUoxetine 20 MG Capsule PO (16:53)
[2020-01-05 21:50] VITALS: BP 136/78; PULSE 87; RESP 18; TEMP 37.2; O2SAT 94
[2020-01-06 02:36] VITALS: BP 130/77; PULSE 82; RESP 16; TEMP 37.1; O2SAT 95
[2020-01-06] MEDS: metroNIDAZOLE 500 MG/100 ML BAG 100 MG IV ×2 (05:40→14:24)
--- NOTE | 2020-01-06 07:11 | PCM.PN.SRG ---
Subjective: Patient's been ambulating, still does not admit to much flatus denies any nausea tolerating sips of clears - Physical Exam Vitals/I&O's: Vital Signs Temp Pulse Resp BP Pulse Ox 98.7 F 82 16 130/77 H 95 01/06/20 02:36 01/06/20 02:36 01/06/20 02:36 01/06/20 02:36 01/06/20 02:36 Oxygen Flow Rate (L/min) 2 Oxygen Delivery Method Room Air Weight: 248 lb 7.375 oz Body Mass Index (BMI) 37.8 Intake and Output for Last 24 Hours 01/04/20 01/05/20 01/06/20 23:59 23:59 23:59 Intake Total 2309.75 / 2309.75 2070.33 / 2070.33 822 / 822 Balance 2309.75 / 2309.75 2070.33 / 2070.33 822 / 822 General: Alert, Oriented x3, Cooperative, No apparent distress Lungs: Normal air movement Cardiovascular: Regular rate Abdomen: Soft, Non Tender, Distended - Mild, - - Incisions clean dry and intact with Steri's Microbiology Past 72 Hours 01/01/20 Unknown Abs - Abdominal Gram Stain - Final 01/01/20 Unknown Abs - Abdominal Wound Culture - Final Escherichia coli Eikenella corrodens 01/01/20 Unknown Abs - Abdominal Anaerobic Culture - Preliminary Checking for anaerobes, further studies to follow. 01/01/20 17:20 Urine, Clean Catch Urine Culture - Final Mixed Culture Current Medications Acetaminophen (Tylenol Liquid) 650 mg PO Q6H PRN PRN PRN Reason: Pain Score 1-10/10 Hydrocodone Bitart/Acetaminophen (Lortab [Replacement] 7.5-325/15) 15 ml PO Q4H PRN PRN PRN Reason: Pain Score 1-10/10 Fluoxetine HCl (Prozac) 20 mg PO DAILY [facility] Last Admin: 01/05/20 16:53 Dose: 20 mg Documented by: Ciprofloxacin (Cipro) 400 mg in 200 mls @ 200 mls/hr IV Q12 [facility] Last Infusion: 01/06/20 00:07 Dose: Infused Documented by: Metronidazole (Flagyl) 500 mg in 100 mls @ 100 mls/hr IV Q8 [facility] Last Infusion: 01/06/20 06:40 Dose: Infused Documented by: Sodium Chloride () 250 mls @ 15 mls/hr IV .[id number] PRN PRN Reason: Saline Flush Last Infusion: 01/05/20 05:48 Dose: 0 mls/hr Documented by: Sodium Chloride () 250 mls @ 15 mls/hr IV .[id number] PRN PRN Reason: Additional IVPB Infusion Lactated Ringer's () 1,000 mls @ 40 mls/hr IV .Q25H [facility] Last Infusion: 01/06/20 06:40 Dose: 40 mls/hr Documented by: Morphine Sulfate () 2 - 4 mg IV Q2H PRN PRN PRN Reason: Pain Score 1-10/10 Last Admin: 01/03/20 22:57 Dose: 2 mg Documented by: Morphine Sulfate () 2 - 4 mg IV Q2H PRN PRN PRN Reason: Pain Score 1-10/10 Last Admin: 01/03/20 09:17 Dose: 4 mg Documented by: Ondansetron HCl (Zofran) 4 mg IV Q8H PRN PRN PRN Reason: NAUSEA Last Admin: 01/05/20 02:47 Dose: 4 mg Documented by: Sodium Chloride () 10 - 40 ml IV UD PRN PRN Reason: SALINE FLUSH Last Admin: 01/05/20 02:47 Dose: 10 ml Documented by: Medical Necessity - Tobacco Use Smoking Status: Never smoker Assessment/Plan All Active Problems (Last Reviewed 05/26/18 @ 12:09 by Joan Poe) Impacted cerumen of both ears (Acute) 29-year-old male with fragile X syndrome, perforated appendicitis with abscess status post laparoscopic hand-assisted appendectomy postop day 5 1. pt has not had much flatus will continue to go slow with clears 2. Encourage ambulation incentive spirometer and up into the chair. 3. We will continue IV Cipro Flagyl blood count is within normal limits Melba Still M.D. Pager: [phone] [facility] [address] [place] [address], [address] [place] [address] Office: [phone]
[2020-01-06 08:20] VITALS: BP 119/84; PULSE 84; RESP 16; TEMP 36.7; O2SAT 97
[2020-01-06 09:00] VITALS: RESP 18
[2020-01-06] MEDS: FLUoxetine 20 MG Capsule PO (09:18)
[2020-01-06] MEDS: Ciprofloxacin 400 MG/200 ML BAG 200 MG IV (09:18)
--- NOTE | 2020-01-06 14:01 | DCINST_ITS ---
Discharge Diet: Light diet - advance as tolerated May shower in (days): 0 - Okay to shower normally, Steri-Strips may be removed in 10 days from surgery if to the night do not fall off on their own Lifting Restrictions: No lifting greater than 20 pounds x 4 weeks Call your doctor if your incision/area has: Continuous Slow Oozing, Sudden Increased Bleeding, Increased Pain/ Swelling, Increased Redness, Foul Smelling Discharge, Swelling at the incision site Call your doctor if you observe: Fever of 101 or Higher Medications to take at Discharge Fluoxetine HCl 15 mg PO DAILY 05/16/15 Ciprofloxacin [Cipro] 500 mg PO BID #10 tab 01/06/20 Metronidazole 500 mg PO TID #15 tab 01/06/20 Allergies/Adverse Reactions: Allergies amoxicillin Allergy (Verified 01/01/20 12:39) Rash The following prescriptions were given: Ciprofloxacin [Cipro] 500 mg PO BID #10 tab Transmission Status: Pending to [id number] Metronidazole 500 mg PO TID #15 tab Transmission Status: Pending to [id number] Primary Care Physician: Hosea Kaufman MD [Primary Care Provider] - Test Results: Test results from this visit will be discussed in further detail at your follow- up appointment, if applicable. Please Follow Up With: Melba Still MD - After 5:00PM and on the weekends call [phone] When: Call the office for virtual follow-up visit in 2 weeks Proposed Discharge Date: 01/06/20
--- NOTE | 2020-01-06 14:03 | PCM.DC.SUM ---
Discharge Date and Diagnosis Date of Admission: 01/01/20 Date of Discharge: 01/06/20 - Primary Discharge Diagnosis Perforated appendicitis status post laparoscopic hand-assisted appendectomy, postop ileus - Secondary Discharge Diagnosis Chronic Problems (Last Reviewed 05/26/18 @ 12:09 by Joan Poe) Kidney stones (Chronic) Fragile X syndrome Hospital Course and Treatment Operations: appendectomy - Laparoscopic hand-assisted on 01/01/2020 Procedures: None Summary of Care Provided: The patient is a 29 year old M sent to the ER after about 5 days of right flank abdominal pain. Patient does have a history of kidney stones. CT abdomen pelvis did show perforated appendicitis with an abscess as well as a nonobstructing 1 cm right kidney stone at the hilum. Patient did have decreased p.o. along with nausea and vomiting during this time. Patient underwent laparoscopic hand-assisted appendectomy. Postoperatively patient did have a postoperative ileus and remained n.p.o. with IV Cipro and Flagyl until he regained bowel function. Once patient was having flatus he was able be started on clear diet and advanced from full's to regular. We will send patient home with additional 5 days of Cipro Flagyl p.o. antibiotics. Patient will not need any pain meds on DC as he has not taken any for the last 2 to 3 days. - Physical Exam Vitals/I&O's: Vital Signs Temp Pulse Resp BP Pulse Ox 98.1 F 84 18 119/84 H 97 01/06/20 08:20 01/06/20 08:20 01/06/20 09:00 01/06/20 08:20 01/06/20 08:20 Oxygen Flow Rate (L/min) 2 Oxygen Delivery Method Room Air Weight: 248 lb 7.375 oz Body Mass Index (BMI) 37.8 Intake and Output for Last 24 Hours 01/04/20 01/05/20 01/06/20 23:59 23:59 23:59 Intake Total 2309.75 / 2309.75 2069.33 / 2069.33 1022 / 1022 Balance 2309.75 / 2309.75 2069. / 2069. 1022 / 1022 General: Alert, Oriented x3, Cooperative, No apparent distress Lungs: Normal air movement Cardiovascular: Regular rate Abdomen: Soft, Non-Distended, Tender Extremities: No clubbing, No cyanosis, No edema Neurological: Cranial nerves II-XII grossly intact Psych/Mental Status: Normal Affect Microbiology Past 72 Hours 01/01/20 Unknown Abs - Abdominal Gram Stain - Final 01/01/20 Unknown Abs - Abdominal Wound Culture - Final Escherichia coli Eikenella corrodens 01/01/20 Unknown Abs - Abdominal Anaerobic Culture - Preliminary Anaerobic cocci Gram negative tonny Current Medications Acetaminophen (Tylenol Liquid) 650 mg PO Q6H PRN PRN PRN Reason: Pain Score 1-10/10 Hydrocodone Bitart/Acetaminophen (Lortab [Replacement] 7.5-325/15) 15 ml PO Q4H PRN PRN PRN Reason: Pain Score 1-10/10 Fluoxetine HCl (Prozac) 20 mg PO DAILY [facility] Last Admin: 01/06/20 09:18 Dose: 20 mg Documented by: Ciprofloxacin (Cipro) 400 mg in 200 mls @ 200 mls/hr IV Q12 [facility] Last Infusion: 01/06/20 10:20 Dose: Infused Documented by: Metronidazole (Flagyl) 500 mg in 100 mls @ 100 mls/hr IV Q8 [facility] Last Infusion: 01/06/20 06:40 Dose: Infused Documented by: Sodium Chloride () 250 mls @ 15 mls/hr IV .[id number] PRN PRN Reason: Saline Flush Last Infusion: 01/05/20 05:48 Dose: 0 mls/hr Documented by: Sodium Chloride () 250 mls @ 15 mls/hr IV .[id number] PRN PRN Reason: Additional IVPB Infusion Lactated Ringer's () 1,000 mls @ 40 mls/hr IV .Q25H [facility] Last Infusion: 01/06/20 06:40 Dose: 40 mls/hr Documented by: Morphine Sulfate () 2 - 4 mg IV Q2H PRN PRN PRN Reason: Pain Score 1-10/10 Last Admin: 01/03/20 22:57 Dose: 2 mg Documented by: Morphine Sulfate () 2 - 4 mg IV Q2H PRN PRN PRN Reason: Pain Score 1-10/10 Last Admin: 01/03/20 09:17 Dose: 4 mg Documented by: Ondansetron HCl (Zofran) 4 mg IV Q8H PRN PRN PRN Reason: NAUSEA Last Admin: 01/05/20 02:47 Dose: 4 mg Documented by: Sodium Chloride () 10 - 40 ml IV UD PRN PRN Reason: SALINE FLUSH Last Admin: 01/05/20 02:47 Dose: 10 ml Documented by: Discharge Diet: Light diet - advance as tolerated May shower in (days): 0 - Okay to shower normally, Steri-Strips may be removed in 10 days from surgery if to the night do not fall off on their own Lifting Restrict to (lbs):: 20 - For 4 weeks Call your doctor if your incision/area has: Continuous Slow Oozing, Sudden Increased Bleeding, Increased Pain/ Swelling, Increased Redness, Foul Smelling Discharge, Swelling at the incision site Call your doctor if you observe: Fever of 101 or Higher Home Medications: Medications to take at Discharge Fluoxetine HCl 15 mg PO DAILY 05/16/15 Ciprofloxacin [Cipro] 500 mg PO BID #10 tab 01/06/20 Metronidazole 500 mg PO TID #15 tab 01/06/20 Following Prescrptions Were Given to Patient: Ciprofloxacin [Cipro] 500 mg PO BID #10 tab Transmission Status: Received by [facility] Metronidazole 500 mg PO TID #15 tab Transmission Status: Received by [facility] Primary Care Physician: Hosea Kaufman MD [Primary Care Provider] - Please Follow Up With: Melba Still MD - After 5:00PM and on the weekends call [phone] When: Call the office for virtual follow-up visit in 2 weeks Disposition: Home Patient Condition:: Good Medical Necessity - Tobacco Use Smoking Status: Never smoker Meaningful Use Info Meaningful Use Diagnoses (Choose all that apply): None applicable
[2020-01-06 14:32] VITALS: BP 129/80; PULSE 75; RESP 16; TEMP 36.9; O2SAT 98
[2020-01-06 17:32] VITALS: BP 144/70; PULSE 78; RESP 18; TEMP 37.2; O2SAT 98
== END 2020-01-06 17:35 | disposition home or self-care (01) | DRG 339 ==
LOC: ED 13:07 → PCU 20:16
PROVIDERS: Admitting Provider Surgery; Emergency Provider Emergency Medicine; PCP Family Medicine; Visit Provider Surgery
PROC: 0DTJ4ZZ Resection of Appendix, Percutaneous Endoscopic Approach (ICD-10-PCS; CPT 44970; principal; 2020-01-01 18:00)
DX: K35.33 Acute appendicitis with perforation, localized peritonitis, and gangrene, with abscess (principal); K56.7 Ileus, unspecified; K91.89 Other postprocedural complications and disorders of digestive system; Q99.2 Fragile X chromosome; N20.0 Calculus of kidney; F70 Mild intellectual disabilities; H61.23 Impacted cerumen, bilateral
CPT/HCPCS: 36415; 74018; 74176; 74177; 80048; 81001; 85025; 87070; 87075; 87077; 87086; 87088; 87186; 87205; 88304; 99251; 99284; J7030; J7050; J7120; Q9967; A4216; C1760; G0463; J0744; J2405

== ENCOUNTER → 2020-01-12 09:46 | Outpatient (CLI) | payer BC, MEDICAID, SELFPAY ==
[2020-01-01 23:40] VITALS: BMI 37.8
--- NOTE | 2020-01-12 10:00 | RAD_ITS ---
STUDY: X-RAY - ABDOMEN/PELVIS REASON FOR EXAM: Male, 29 years old. Kidney stone TECHNIQUE: Single AP view of the abdomen / pelvis. COMPARISON: Comparison is made with prior examination dated January 04, 2020. FINDINGS: There is an unremarkable bowel gas pattern. There is evidence of a 1.1 cm calculus in the region of the right renal pelvis. Normal soft tissue structures. Normal visualized osseous structures. RAD/Abdomen Single View IMPRESSION: 1.1 cm calculus in the region of the right renal pelvis. Electronically Signed: Markus Flores, at 15:51 EDT , Service support ,
== END ==
PROVIDERS: PCP Family Medicine; Referring Provider Urology; Visit Provider Urology
DX: N20.0 Calculus of kidney (principal)
CPT/HCPCS: 74018

== ENCOUNTER 2020-01-20 10:33 | Day surgery (SDC) | payer BC, MEDICAID, SELFPAY ==
[2020-01-01 23:40] VITALS: BMI 37.8
[2020-01-20] VITALS (8 sets, daily range): BP systolic 86–133; BP diastolic 44–97; PULSE 80–100; RESP 16; TEMP 36.1–36.6; O2SAT 94–98; BMI 35.4
[2020-01-20] MEDS: Lactated Ringers 1,000 ML 100 ML IV (11:09)
--- NOTE | 2020-01-20 15:14 | PCM.HP.STD ---
Problem List (1) Kidney stones Status: Chronic History of Present Illness Date of Admission: 01/20/20 Chief Complaint: Right kidney stone The patient is a 29 year old male who was admitted to the hospital for appendicitis that was ruptured at the time of the procedure CAT scan demonstrated a stone in the right UPJ causing obstruction as well. He is now recovered from his appendicitis and we are planning to proceed with treatment of his obstructing right kidney stone with stent placement and right shockwave lithotripsy. Spoke to the patient and his caregiver and they understand it is possible may need more than one procedure. Past Medical History Past Medical History (Chronic Problems): Chronic Problems (Last Updated 01/06/20 @ 14:[address] Melba Still MD) Fragile X syndrome in male (Chronic) Kidney stones (Chronic) Medical History: Medical History (Last Updated 01/06/20 @ 14:[address] Melba Still MD) Fragile X syndrome in male (Chronic) Q99.2 Allergies amoxicillin Allergy (Verified 01/20/20 10:56) Rash Home Medications: Ambulatory Orders Medication Instructions Recorded Fluoxetine HCl 15 mg PO DAILY 05/16/15 Surgical History: appendectomy, - - Kidney stone Psychiatric History: No pertinent psych hx Lives: With Family Smoking Status: Never smoker Tobacco Use: Non-smoker Alcohol: None Drugs: None - *Family History Maternal History Items: No pertinent history Review of Systems Constitutional: Denies: Chills, Fever, Weight Change HEENT: Denies: Head Aches, Sinus Congestion, Sinus Drainage Cardiovascular: Denies: Chest Pain, Palpitations Respiratory: Denies: Cough, Shortness of breath at rest, Sputum production Gastrointestinal: Denies: Abdominal Pain, Nausea, Vomiting Genitourinary: Denies: Dysuria Musculoskeletal: Denies: Joint Pain, Joint Tenderness Skin: Denies: Rash, Wounds Neurological: Denies: Numbness, Tingling, Focal weakness Psychiatric: Denies: Anxiety, Depression, Homicidal Ideations, Suicidal Ideations Hematologic/ Lymphatic: Denies: Easy Bruising, Easy Bleeding VTE Information - Inpt Only VTE Present on Admission: No VTE Mechan Device Prophylaxis: SCD's - Physical Exam Vitals/I&O's: Vital Signs Temp Pulse Resp BP Pulse Ox 97.8 F 80 16 108/73 98 01/20/20 10:58 01/20/20 10:58 01/20/20 10:58 01/20/20 10:58 01/20/20 10:58 Oxygen Delivery Method Room Air Weight: 105.8 kg Body Mass Index (BMI) 35.4 General: Alert, Oriented x3, Cooperative HEENT: Atraumatic, PERRLA, EOMI, Normocephalic Neck: Supple, No JVD, Negative Carotid Bruits Lungs: Clear to auscultation, Normal air movement Cardiovascular: Regular rate, No murmurs Abdomen: Bowel Sounds Present, Soft, Non Tender Extremities: No edema, Capillary Refill Less than 3 Seconds Skin: No rashes, No breakdown Musculoskeletal: No Tenderness to Palpation of Joints or Extremities Neurological: Cranial nerves II-XII grossly intact Psych/Mental Status: Normal Affect, Appropriate Current Medications Lactated Ringer's () 1,000 mls @ 100 mls/hr IV .Q10H [facility] Last Admin: 01/20/20 11:09 Dose: 100 mls/hr Documented by: Assessment/Plan All Active Problems (Last Updated 01/06/20 @ 14:[address] Melba Still MD) Impacted cerumen of both ears (Acute) 29-year-old male plan to proceed with right shockwave lithotripsy and right stent placement.
[2020-01-20] MEDS: Cefazolin 2 GM in 0.9% Normal Saline 100 ML IV (15:17)
--- NOTE | 2020-01-20 15:20 | PCM.DC.URO ---
Discharge Diet: Light diet - advance as tolerated Discharge Activity: Return to Normal Activity Call your doctor if your incision/area has: Sudden Increased Bleeding Call your doctor if you observe: Fever of 101 or Higher Allergies/Adverse Reactions: Allergies amoxicillin Allergy (Verified 01/20/20 10:56) Rash Medications to take at Discharge Fluoxetine HCl 15 mg PO DAILY 05/16/15 Ciprofloxacin [Cipro] 500 mg PO BID #6 tab 01/20/20 Hydrocodone/Acetaminophen [Peterman 5-325 Tablet] 1 ea PO Q4H PRN PRN 5 Days #14 tab 01/20/20 The following prescriptions were given: Ciprofloxacin [Cipro] 500 mg PO BID #6 tab Transmission Status: Pending to [facility] Hydrocodone/Acetaminophen [Peterman 5-325 Tablet] 1 ea PO Q4H PRN PRN 5 Days #14 tab PRN Reason: Pain Score 1-10/10 Transmission Status: Sent to [facility] Primary Care Physician: Mars Deleon MD [Primary Care Provider] - Test Results: Test results from this visit will be discussed in further detail at your follow-up appointment, if applicable. Please Follow Up With: Lalit Pacheco MD When: please call to make an appointment.
--- NOTE | 2020-01-20 16:15 | OP.PCM_ITS ---
Problem List (1) Kidney stones Status: Chronic Report of Operation Date of Procedure: 01/20/20 Pre-Operative Diagnosis: Right kidney stone Post-Operative Diagnosis: Same Surgery/Procedure Performed:: Cystoscopy right stent placement right extracorporeal shockwave lithotripsy Description of Surgical Findings:: Patient was taken back to the operating room after smooth induction of anesthe alli he was placed supine on the lithotripter table and then was positioned down on the table his legs were placed in stirrups penis and testicles were prepped and draped in usual sterile fashion, went into the bladder with a 21 [place] Island[place] rigid cystourethroscope. The entire length the urethra was normal the prostate is normal inside the bladder identified the trigone cannulated the right ureteral orifice with a Glidewire advance a wire up into the kidney and over the wire advanced a stent 6 [place] Islander by 26 cm stent. I left the string on the stent but cut it short so would not it be accidentally removed. We then repositioned the patient on the lithotripter machine we focalized the stone on the F2 focal point of the lithotripter and proceeded with shockwave treatment of the stone after about 1400 shockwaves the stone it broken up well we pulled out the therapy had looked again and then continue with shockwave lithotripsy and a total of 3000 shockwaves were delivered to the stone between 5 to 7 kV at a rate of 90/min it was a complete treatment. Stone appeared to break up very well since there was no visible fragments at the end of the treatment under fluoroscopy. We left a stone in place patient's anesthetic was reversed plan to see him back next week with a KUB and will remove the stent in the office. Type of Anesthesia:: General Drains: stent - Admit VTE Documentation VTE Present on Admission: No VTE Mechan Device Prophylaxis: SCD's
== END 2020-01-20 18:27 | disposition home or self-care (01) ==
LOC: SDC 10:34 → AC 10:34
PROVIDERS: PCP Family Medicine; Referring Provider Urology; Visit Provider Urology
PROC: (CPT 50590; principal; 2020-01-20 12:40)
DX: N20.0 Calculus of kidney (principal); Q99.2 Fragile X chromosome; Z87.442 Personal history of urinary calculi
CPT/HCPCS: 00873; 50590; 52332; J7120; C1769; C2617; J2405

== ENCOUNTER → 2020-01-26 14:39 | Outpatient (CLI) | payer BC, MEDICAID, SELFPAY ==
[2020-01-20 10:58] VITALS: BMI 35.4
--- NOTE | 2020-01-26 14:45 | RAD_ITS ---
STUDY: X-RAY - ABDOMEN/PELVIS REASON FOR EXAM: Male, 29 years old. HX RIGHT SIDE KIDNEY STONE, STENT TECHNIQUE: Single AP view of the abdomen / pelvis. COMPARISON: Comparison is made with prior study dated January 12, 2012. FINDINGS: There is a moderate amount of colonic fecal material. A right-sided double-J stent catheter is seen with the proximal tip in the renal pelvis and distal tip in the right side of the bladder. The previously seen calculus in the region of the right renal pelvis is not seen at this time. Normal soft tissue structures. Normal visualized osseous structures. RAD/Abdomen Single View IMPRESSION: Status post right double J stent catheter placement. The previously seen calculus in the right renal pelvis is not seen at this time. Electronically Signed: Markus Flores, at 15:18 EDT , Service support ,
== END ==
PROVIDERS: PCP Family Medicine; Referring Provider Urology; Visit Provider Urology
DX: N20.0 Calculus of kidney (principal)
CPT/HCPCS: 74018

== ENCOUNTER 2021-09-17 23:47 | Emergency (ER) | payer BC, MEDICAID, SELFPAY ==
[2021-09-17 23:48] VITALS: BP 147/98; PULSE 83; RESP 16; TEMP 36.7; O2SAT 98; BMI 39.1
--- NOTE | 2021-09-18 01:28 | CT_ITS ---
EXAM: CT ABDOMEN AND PELVIS WITH INTRAVENOUS CONTRAST CLINICAL INDICATION: abd pain / ? Incarcerated umbilical hernia TECHNIQUE: Helically acquired images were obtained of the abdomen and pelvis with intravenous contrast. CTDIvol = ( 21.52 ) mGy, DLP = ( 1287.12 ) mGycm This CT exam was performed using one or more of the following dose reduction techniques: automated exposure control, adjustment of the mA and/or kV according to patient size, and/or use of iterative reconstruction technique. This report was created using [employer] report [employer] technology. CONTRAST: IV 100mL [id number] COMPARISON: CT abdomen pelvis 01/01/2020. FINDINGS: LOWER THORAX: Unremarkable. Lung bases are clear. No cardiomegaly. No significant pericardial effusion. ABDOMEN: LIVER: Unremarkable. Homogeneous. No focal mass. GALLBLADDER AND BILE DUCTS: Gallbladder is contracted but otherwise unremarkable. No calcified gallstones. No gallbladder distention or wall edema. No intra- or extrahepatic biliary ductal dilation. PANCREAS: Unremarkable. No focal cystic or solid mass. SPLEEN: Splenomegaly. ADRENALS: Unremarkable. No nodules. KIDNEYS AND URETERS: No obstructive uropathy. Solitary 6 mm calculus located within the right kidney. Normal renal size and position. STOMACH AND BOWEL: Fat-containing umbilical hernia. Slight stranding associated. The hernia defect measures 2.8 cm. No bowel herniation. No inflammatory or obstructive changes of bowel. PELVIS: APPENDIX: No evidence of acute appendicitis. BLADDER: Unremarkable. REPRODUCTIVE: Unremarkable as visualized. No mass. ABDOMEN and PELVIS: INTRAPERITONEAL SPACE: No free air or free fluid. BONES/JOINTS: Unremarkable. No suspicious lytic or blastic abnormality. SOFT TISSUES: Fat-containing left inguinal hernia. VASCULATURE: Unremarkable. Abdominal aorta is non-dilated. LYMPH NODES: Unremarkable. No enlarged lymph nodes. CT/Abdomen/Pelvis W IV Cont ONLY IMPRESSION: 1. 6 mm nonobstructing right renal calyceal calculus. 2. No other acute or inflammatory disease or bowel obstruction. 3. Small fat-containing umbilical region hernia with slight stranding without bowel herniation or evidence for bowel obstruction. Electronically Signed: King Ward MD at 3:14 EST Tel , Service support ,
[2021-09-18 01:57] LABS: Absolute Lymphocyte Count 2.18 X10^3/uL (0.83-4.51); Absolute Neutrophil Count 8.2 X10^3/uL (2.0-7.7); Basophil# 0.04 X10^3/uL; Basophil% 0.4 % (0-1); Eosinophil# 0.07 X10^3/uL; Eosinophils% 0.6 % (0-5); Hematocrit 46.4 % (40-54); Hemoglobin 15.8 g/dL (13.0-16.5); Lymphocyte # 2.18 X10^3/ul (0.83-4.51); Lymphocyte % 19.6 % (19-41); Mean Corp Hgb Conc 34.1 g/dL (32-36); Mean Corpuscular Hgb 29.6 pg (27.0-32.0); Mean Corpuscular Volume 87.1 fL (80-94); Monocyte# 0.61 X10^3/uL; Monocyte% 5.5 % (0-10); NRBC Flagged by Analyzer 0 % (0-5); Neutrophil # 8.19 X10^3/uL (2.7-7.7); Neutrophil % 73.6 % (47-70); Platelet Count 222 K/mm3 (150-450); RBC Distribution Width SD 41.1 fl (35.1-43.9); Red Blood Count 5.33 M/mm3 (4.6-6.2); White Blood Count 11.1 K/mm3 (4.4-11.0)
[2021-09-18] MEDS: 0.9% Normal Saline 1,000 ML 999 ML IV (01:57)
[2021-09-18 02:18] LABS: AST(SGOT) 23 U/L (15-37); Alanine Aminotransfer ALT/SGPT 50 U/L (16-61); Albumin, Serum 4.2 g/dL (3.2-5.0); Alkaline Phosphatase 81 U/L (45-117); Anion Gap 7 (5-15); BUN 14 mg/dL (7-18); BUN/Creat Ratio 14.1 RATIO (10-20); Bilirubin, Direct 0.15 mg/dL (0.00-0.30); Calcium,Total 9.6 mg/dL (8.5-10.1); Chloride 108 mmol/L (98-107); Creatinine, Serum 0.99 mg/dL (0.70-1.30); EST Glomerular Filtration Rate 92 mL/min (>60); Est Glom Filt Rate - Afr Amer 112 mL/min (>60); Estimated Creatinine Clearance 100.15 ml/min; Globulin 3.7 g/dL (2.2-4.2); Glucose 88 mg/dL (74-106); Lipase 50 U/L (73-393); Potassium 3.6 mmol/L (3.5-5.1); Protein, Total 7.9 g/dL (6.4-8.2); Sodium Level 142 mmol/L (136-145)
[2021-09-18 02:20] LABS: Lactic Acid 0.8 mmol/L (0.4-1.9)
--- NOTE | 2021-09-18 02:58 | EDS_ITS ---
HPI History of Present Illness Chief Complaint: Abd Pain Narrative Narrative: Is a 30-year-old male with past medical history of MRDD as well as previous appendicitis which was removed surgically approximately 2 years ago. Patient and family state that he has been complaining of right-sided abdominal pain intermittently but this is worsened over the past week. They state they noticed now that when he stands up there is a bulge of the right side. Patient denies any fevers or chills or difficulty eating or having bowel movements. However with the increased pain and abdominal deformity they were concerned and therefore bring him in for evaluation [facility] Medical History Fragile X syndrome in male Home Medications fluoxetine 15 mg PO DAILY 05/16/15 [History Last Taken 01/20/20 08:00] oxycodone 5 mg PO TID PRN 3 Days #45 ml 09/18/21 [Rx Last Taken Unknown] Allergy/AdvReac Type Severity Reaction Status Date / Time amoxicillin Allergy Rash Verified 09/17/21 23:50 Surgical History (Updated 09/18/21 @ 00:34 by Anju Alfaro) Hx of appendectomy Social History Smoking Status: Never smoker alcohol intake: never ROS ROS ED Constitutional Constitutional ED: Denies chills or fever(s) ENT ENT ED: Denies sore throat Cardiovascular Cardiovascular: Denies chest pain Respiratory/Chest Respiratory/Chest: Denies cough or dyspnea Gastrointestinal Gastrointestinal: Reports abdominal pain; Denies diarrhea, nausea or vomiting Genitourinary Genitourinary ED: Denies dysuria Musculoskeletal Musculoskeletal: Denies myalgias Integumentary Denies rash Neurologic Neurologic: Denies headache(s) Hematologic/Lymphatic Hematologic/Lymphatic: Denies easy bleeding or easy bruising EXAM Physical Exam Const Vital Signs: 09/17/21 23:48 Temperature 98.1 F Temperature Source Temporal Pulse Rate 83 Respiratory Rate 16 Blood Pressure 147/98 H Blood Pressure Mean 114 Pulse Ox 98 Oxygen Delivery Method Room Air Positive well nourished, well developed and obese General Appearance ED: well developed Nutritional Appearance: obese HEENT Reports moist mucous membranes HEENT Narrative: Right canal is 80% obstructed with cerumen while left canal is 100% obstructed Eyes PERRL and EOMs intact bilaterally Neck supple Resp normal respiratory effort and clear to auscultation bilaterally Cardio regular rate and regular rhythm Rate: other Other Details: Radial pulses are plus 2 out of 4 bilaterally GI non-tender and non-distended GI Narrative: Patient does have a ventral hernia noted that is reducible in nature without obvious obstruction changes present. No voluntary guarding or rigidity. No pulsatile mass Auscultation: normoactive bowel sounds Palpation: soft Back/Spine no CVA tenderness Extremity normal to inspection Neuro CN's II-XII intact bilaterally Neuro Narrative: Patient is at his baseline mental status with no focal neurologic deficit Sensorium / Orientation: alert Motor Exam: strength 5/5 throughout Psych Psych Narrative: Patient has a flat affect Skin no rashes or lesions noted MDM MDM MDM Narrative Medical decision making narrative: Patient presented to the ER afebrile and his history and exam is consistent with a umbilical hernia. It feels reducible on exam but to ensure there is no underlying intestinal inflammation or obstruction basic blood work and a CT were obtained. Blood work revealed no acute finding and CT scan confirmed hernia but noted it was fat-containing without intestinal involvement. On reevaluation the patient is resting comfortably and therefore he will be referred to general surgery to discuss possible surgical fixation if symptoms persist. As he does not have signs of obstruction or incarceration there is no need for admission. Lab Data Attestation: I reviewed the patient's lab results. Labs: Laboratory Results - last 24 hr 09/18/21 09/18/21 09/18/21 01:50 01:50 01:50 WBC 11.1 H RBC 5.33 Hgb 15.8 Hct 46.4 MCV 87.1 MCH 29.6 MCHC 34.1 RDW Std Deviation 41.1 RDW Coeff of Vicenta 13.0 Plt Count 222 MPV 10.0 Immature Gran % (Auto) 0.300 Neut % (Auto) 73.6 H Lymph % (Auto) 19.6 Victoria % (Auto) 5.5 Eos % (Auto) 0.6 Baso % (Auto) 0.4 Absolute Neuts (auto) 8.2 H Absolute Lymphs (auto) 2.18 Nucleated RBC % 0 Sodium 142 Potassium 3.6 Chloride 108 H Carbon Dioxide 27.0 Anion Gap 7 BUN 14 Creatinine 0.99 Estim Creat Clear Calc 100.15 Est GFR (MDRD) Af Amer 112 Est GFR (MDRD) Non-Af 92 BUN/Creatinine Ratio 14.1 Glucose 88 Lactic Acid 0.8 Calcium 9.6 Total Bilirubin 0.50 Direct Bilirubin 0.15 AST 23 ALT 50 Alkaline Phosphatase 81 Total Protein 7.9 Albumin 4.2 Globulin 3.7 Lipase 50 L Radiography Diagnostic Testing: Clinical Impression(s) from Imaging Studies Abdomen/Pelvis CT 09/18/21 01:28 IMPRESSION: 1. 6 mm nonobstructing right renal calyceal calculus. 2. No other acute or inflammatory disease or bowel obstruction. 3. Small fat-containing umbilical region hernia with slight stranding without bowel herniation or evidence for bowel obstruction. Electronically Signed: King Ward MD at 3:14 EST Tel , Service support , Discharge Plan Triage Chief Complaint: Abd Pain ED Provider: King Arce Dx/Rx/DC Orders Clinical Impression: Hernia, umbilical, Impacted cerumen of both ears Instructions: What Is a Hernia? Prescriptions: New oxycodone 5 mg/5 mL solution 5 mg PO TID PRN (Reason: pain) 3 Days Qty: 45 RF: 0 No Action fluoxetine 10 MG tablet 15 mg PO DAILY RF: 0 Primary Care Provider: Mars Deleon Referrals: Mars Deleon MD [Primary Care Provider] - Melba Still MD [STAFF PHYSICIAN] - 1-2 Weeks Disposition Disposition: Home, Self Care
--- NOTE | 2021-09-18 13:26 | ED.RN ---
PT REQUESTING TO HAVE PRESCRIPTION SENT TO [facility] IN [place]. DR BRADEN NOTIFIED
== END 2021-09-18 03:51 | disposition home or self-care (01) ==
PROVIDERS: Emergency Provider Emergency Medicine; PCP Family Medicine; Visit Provider Emergency Medicine
DX: K42.9 Umbilical hernia without obstruction or gangrene (principal); H61.23 Impacted cerumen, bilateral; Q99.2 Fragile X chromosome; E66.9 Obesity, unspecified; Z90.49 Acquired absence of other specified parts of digestive tract; Z68.39 Body mass index [BMI] 39.0-39.9, adult
CPT/HCPCS: 74177; 80048; 80076; 83605; 83690; 85025; 96360; 96361; 99283; J7030; Q9967; A4216

== ENCOUNTER 2021-12-01 09:24 | Day surgery (SDC) | payer BC, MEDICAID, SELFPAY ==
[2021-12-01] VITALS (12 sets, daily range): BP systolic 108–135; BP diastolic 67–109; PULSE 91–126; RESP 16–17; TEMP 36.1–37.8; O2SAT 90–93; BMI 39.2
--- NOTE | 2021-12-01 09:56 | HP.PCM.SX_ITS ---
HPI - General HPI Narrative ROCÍO MARROQUIN, is a 31 M who presents incisional hernia repair with mesh. Patient was having abdominal pain he went to the ER had a CT abdomen pelvis did show an incisional hernia at the previous hand-assisted laparoscopic appendectomy site. Patient is accompanied by his mom and his dad. Does have a past medical history for fragile X syndrome. PFSH Medical History Abdominal pain Anxiety Bilateral hearing loss due to cerumen impaction Fragile X syndrome in male GERD (gastroesophageal reflux disease) Impacted cerumen of both ears Kidney stones Non-smoker Home Medications fluoxetine 10 mg tablet 20 mg PO DAILY tab 10/09/21 [History Last Taken Unknown] ascorbic acid (vitamin C) [Vitamin C] 500 mg PO DAILY 11/27/21 [History Last Taken Unknown] Allergy/AdvReac Type Severity Reaction Status Date / Time amoxicillin Allergy Rash Verified 11/27/21 15:04 Family History (Updated 10/09/21 @ 08:10 by Kaur Orourke) Mother Hypertension Surgical History History of extraction of renal calculus Hx of appendectomy Hx of tonsillectomy Social History (Updated 10/09/21 @ 08:10 by Kaur Orourke) Smoking Status: Never smoker alcohol intake: never substance use type: does not use Physical Exam Const alert, oriented x3 and no apparent distress HEENT normocephalic and head/scalp atraumatic Resp normal respiratory effort Cardio regular rate GI soft to palpation; Negative for non-distended Palpation: tender other (Minimal at incisional hernia) and hernia other (Supraumbilical incisional hernia, reducible); Negative for guarding Extremity no clubbing, cyanosis or edema Neuro CN's II-XII intact bilaterally Psych Mood & Affect: flat affect Results Lab / Micro Data Micro: Microbiology 11/30/21 14:18 Interface Orders SARS-CoV-2 Antigen (Rapid) - Final Assessment & Plan Assessment/Plan (1) Incisional hernia: PLAN: Plan to do a laparoscopic incisional herniorrhaphy with mesh, with open approach to close the fascia with permanent sutures. Reviewed the procedure with the patient and his parents including the risks, including but not limited to infection, bleeding, paresthesia, chronic back pain, injury to small bowel and recurrence. All questions were answered. Melba Still M.D. Pager: [phone] [facility] [address] [place] [address] [address] [place] [address] Office: [phone] Procedure Criteria Type of Procedure Procedure Type: Elective Elective Risks - COVID COVID Risk Discussion: The surgeon/proceduralist and patient have discussed in detail the risk of exposure to and/or potential harm posed by the COVID-19 virus with having a surgery/procedure at this time versus the risk of delaying the surgery/procedure. It is not possible to know either the risk of delaying the surgery or procedure or chance of getting an infection with perfect accuracy, but a joint decision was made between the patient and the surgeon/proceduralist to proceed at this time with the scheduled surgery/procedure as indicated on the consent form.
[2021-12-01] MEDS: Lactated Ringers 1,000 ML 15 ML IV (10:03)
[2021-12-01] MEDS: Bupivacaine Mpf 0.5% 30 ML VIAL (11:13)
--- NOTE | 2021-12-01 12:42 | OP.PCM_ITS ---
Report of Operation Date of Procedure: 12/01/21 Pre-Operative Diagnosis: Incisional hernia Post-Operative Diagnosis: Incarcerated incisional hernia Surgery/Procedure Performed:: open repair of incisional hernia converted to laparoscopic with mesh Surgeon: Melba Still fuel cell battery technician: Yvonne Christy Type of Anesthesia: General/Supplemental Anesthesiologist: Steven Edwards Special Medications: Clindamycin 900 mg IV x1 Specimen's removed: None Estimated Blood Loss (mL): < 10 cc Description of Procedure: Patient was brought to the operating placed plan operating table. Timeout was completed verifying correct patient procedure, site, positioning, special, prior beginning procedure. General anesthesia was induced. Patient abdomen is prepped draped in usual fashion with chlorhexidine. The previous incision at the location of the hernia was reincised with 15 blade scalpel. This was deepened to the fascia with electrocautery. The hernia was reduced and the fascia was cleared. 1 Prolene [id number] sutures x4 was used to close the fascia. The ventralight ST mesh with Echo PS (lot [id number]) 15.2 cm diameter was placed through the open incision. The 5 mm trochars placed in the left lower quadrant under direct visualization. Abdomen was insufflated to 10 mmHg. Patient tolerated insufflation well. Laparoscope was placed. Additional 5 mm trochars were placed in the right lower and right upper quadrant under direct visualization. The positioning system was hooked up to the mesh and the balloon attached to mesh was insufflation- mesh laid flat against abdominal wall. Secure strap was used to secure the mesh around the edges. The positioning system was completely removed from the mesh and abdomen via the 5 mm trocar. The middle part of the mesh was also secured with secure strap tacks. Local anesthesia of 0.5% Marcaine total of 30 cc used throughout the case. The supraumbilical wound was closed with subdermal sutures of 3-0 Vicryl interrupted. Skin was closed with running 4-0 Monocryl sutures. Steri-Strips were also placed and OpSite's. Patient was extubated. Patient tolerated procedure well and sent to the postanesthesia care unit in stable condition. Grafts/Implants Used: ventralight ST mesh with Echo PS (lot [id number]) Complications None
--- NOTE | 2021-12-01 12:51 | EX.PCM.DISCH ---
Discharge Instructions Diet Discharge Diet: Light diet - advance as tolerated Activity Discharge Activity: May Not Drive (while taking narcotic pain medications.) May shower in (days): 1 Lifting Restrictions: no lifting >20 lbs x 2 wks, no strenuous exercise for 4 wks Additional Activity Instructions:: Wear abdominal binder initially for the first 2 weeks, then for comfort. Dressing / Incision Call your doctor if your incision/area has: Continuous Slow Oozing, Sudden Increased Bleeding, Increased Pain/ Swelling, Increased Redness, Foul Smelling Discharge and Swelling at the incision site Call your doctor if you observe: Fever of 101 or Higher Remove Dressing in: 2 days Cleanse incision/area with: Soap & Water Additional Dressing/Incision Instructions:: Steri-Strips will fall off in 7 to 10 days, if they do not fall off okay to remove after 10 days. Follow Up Care Please Follow Up With: Melba Still MD When: Call the office for a follow-up appointment 2 weeks; after 5 PM and on the weekends call [phone] with any concerns. Test Results: Test results from this visit will be discussed in further detail at your follow-up appointment, if applicable. Discharge Plan Admission Attending Provider: Melba Still Primary Care Provider: Mars Deleon Discharge Orders/Prescriptions Prescriptions: New oxycodone-acetaminophen 5-325 mg tablet 1 - 2 tab PO Q6H PRN (Reason: pain) 4 Days Qty: 14 RF: 0 Continued fluoxetine 10 mg tablet 20 mg PO DAILY RF: 0 ascorbic acid (vitamin C) [Vitamin C] 500 mg Tablet 500 mg PO DAILY RF: 0 Referrals / Follow Up: Mars Deleon MD [Primary Care Provider] - Disposition Disposition (needs filled in before D/C Order can be placed): Home, Self Care
[2021-12-01] MEDS: oxyCODONE Soln 5 MG/0.25 ML PO.SYRINGE PO (16:21)
== END 2021-12-01 23:59 | disposition home or self-care (01) ==
LOC: SDC 09:25 → AC 09:29
PROVIDERS: PCP Family Medicine; Referring Provider Surgery; Visit Provider Surgery
PROC: 0WQF4ZZ Repair Abdominal Wall, Percutaneous Endoscopic Approach (ICD-10-PCS; CPT 832; principal; 2021-12-01 10:40)
DX: K43.2 Incisional hernia without obstruction or gangrene (principal); F41.9 Anxiety disorder, unspecified; Q99.2 Fragile X chromosome; Z87.442 Personal history of urinary calculi; Z79.899 Other long term (current) drug therapy
CPT/HCPCS: 00832; 49654; 87426; C9803; J7120; J2405